=== PATIENT | male | born 1950 | race Caucasian/White ===

== ENCOUNTER 2019-02-02 09:04 | Day surgery (SDC) | payer MEDICARE, SELFPAY ==
[2019-02-02 10:00] VITALS: BP 144/94; PULSE 64; RESP 18; TEMP 36.4; O2SAT 98; BMI 27.3
[2019-02-02] MEDS: PROPARACAINE 0.5% OPHTH SOL 2 DROPS EYE-OP (10:05)
[2019-02-02] MEDS: CATARACT EYE COMPOUND (10 DROPS/SYRINGE) 3 DROPS EYE-OP (10:15)
--- NOTE | 2019-02-02 10:37 | PM.PREOP ---
Pre-operative Note Interval Note History & Physical reviewed/Exam performed by Physician: Yes Changes to H&P: No
[2019-02-02] MEDS: BALANCED SALT IRRIG SOLN NO.2 15 ML 5 ML IRR (11:03)
[2019-02-02] MEDS: LIDOCAINE 2% INJ SDV 2 ML INJ (11:04)
[2019-02-02] MEDS: CHONDROIDTIN/SOD HYALURONATE 1.05 ML SYRINGE INTRAOCULA (11:04)
[2019-02-02] MEDS: TETRACAINE 0.5% OPHTH DROPS 4 ML 2 DROPS EYE-OP (11:05)
[2019-02-02] MEDS: MOXIFLOXACIN INJ 5 MG/ML VIAL EYE-OP (11:05)
[2019-02-02] MEDS: PHENYLEPHRINE/LIDOCAINE VIAL (OR) 0.2 ML EYE-OP (11:05)
[2019-02-02] MEDS: BALANCED SALT IRRIG SOLN NO.2 500 ML, EPINEPHrine 1 MG IRR (11:06)
--- NOTE | 2019-02-02 11:23 | P.OP_ITS ---
Procedure & Clinicians Procedure: Cataract extraction with intraocular lens implant, left Same procedure as scheduled: Yes Indications: Visually significant age related nuclear sclerosis, left Surgeon: Jorge Bowen Click Yes if Unassisted: Yes Anesthesia Type: MAC +/- Operative Notes Procedure in detail: The patient was brought to the operating suite. The correct patient, surgical site and lens were confirmed. 0.5 % tetracaine drops were placed in the left eye. The patient was prepped and draped in the typical bronson rile manner. A lid speculum was placed in the eye. 2% lidocaine was placed on the eye. A paracentesis port was created with a side-port blade. 0.1 mL of 1% preservative free lidocaine with phenylephrine was injected into the anterior chamber. Viscoelastic was injected into the anterior chamber. A 2.6mm keratome was used to create a clear corneal temporal incision. Cystotome and Utrata forceps were used to create a continuous curvilinear capsulorrhexis. Balanced salt solution was used to hydrodissect the nucleus. Phacoemulsification was used to remove the lens. The capsular bag was inflated with viscoelastic. A Perales ZCBOO +24.0D lens was inserted into the capsule. Viscoelastic was removed and the wound hydrated. The wound was found to be leak free and the eye was assessed to be at normal physiologic pressure. 0.1mL Vigamox was injected into the anterior chamber. The lid speculum was removed and the patient left the operating room in excellent condition. Complications: none Post-operative Condition: stable Disposition: same day surgery
[2019-02-02 11:30] VITALS: BP 150/93; PULSE 62; RESP 20; TEMP 36.2; O2SAT 99
== END 2019-02-02 10:45 | disposition home or self-care (01) ==
LOC: OR 09:07
PROVIDERS: Admitting Provider Ophthalmology; Visit Provider Ophthalmology
PROC: (CPT 66984; principal; 2019-02-02 10:30)
DX: H25.12 Age-related nuclear cataract, left eye (principal); E11.9 Type 2 diabetes mellitus without complications
CPT/HCPCS: 66984; J0171; J2250; J3010

== ENCOUNTER 2019-02-16 09:15 | Day surgery (SDC) | payer MEDICARE, SELFPAY ==
[2019-02-16] MEDS: PROPARACAINE 0.5% OPHTH SOL 2 DROPS EYE-OP (09:33)
[2019-02-16 09:34] VITALS: BP 134/87; PULSE 69; RESP 16; TEMP 36.6; O2SAT 98; BMI 28.5
[2019-02-16] MEDS: CATARACT EYE COMPOUND (10 DROPS/SYRINGE) 3 DROPS EYE-OP (09:34)
--- NOTE | 2019-02-16 10:40 | PM.PREOP ---
Pre-operative Note Interval Note History & Physical reviewed/Exam performed by Physician: Yes Changes to H&P: No
[2019-02-16] MEDS: TETRACAINE 0.5% OPHTH DROPS 4 ML 2 DROPS EYE-OP (10:56)
[2019-02-16] MEDS: LIDOCAINE 2% INJ SDV 2 ML INJ (10:57)
[2019-02-16] MEDS: MOXIFLOXACIN INJ 5 MG/ML VIAL EYE-OP (10:57)
[2019-02-16] MEDS: PHENYLEPHRINE/LIDOCAINE VIAL (OR) 0.2 ML EYE-OP (10:57)
[2019-02-16] MEDS: CHONDROIDTIN/SOD HYALURONATE 1.05 ML SYRINGE INTRAOCULA (10:58)
[2019-02-16] MEDS: BALANCED SALT IRRIG SOLN NO.2 500 ML, EPINEPHrine 1 MG IRR (10:58)
[2019-02-16] MEDS: BALANCED SALT IRRIG SOLN NO.2 15 ML 5 ML IRR (10:59)
--- NOTE | 2019-02-16 11:18 | PM.OP.1 ---
Procedure & Clinicians Procedure: Cataract extraction with intraocular lens implant, right Same procedure as scheduled: Yes Indications: Age related, visually significant nuclear sclerosis, right Surgeon: Jorge Bowen Click Yes if Unassisted: Yes Anesthesia Type: MAC +/- Operative Notes Procedure in detail: The patient was brought to the operating suite. The correct patient, surgical site and lens were confirmed. 0.5 % tetracaine drops were placed in the right eye. The patient was prepped and draped in the typical sterile manner. A lid speculum was placed in the eye. 2% lidocaine was placed on the eye. A paracentesis port was created with a side-port blade. 0.1 mL of 1% preservative free lidocaine with phenylephrine was injected into the anterior chamber. Viscoelastic was injected into the anterior chamber. A 2.6mm keratome was used to create a clear corneal temporal incision. Cystotome and Utrata forceps were used to create a continuous curvilinear capsulorrhexis. Balanced salt solution was used to hydrodissect the nucleus. Phacoemulsification was used to remove the lens. The capsular bag was inflated with viscoelastic. A Perales ZCBOO +23.5D lens was inserted into the capsule. Viscoelastic was removed and the wound hydrated. The wound was found to be leak free and the eye was assessed to be at normal physiologic pressure. 0.1mL Vigamox was injected into the anterior chamber. The lid speculum was removed and the patient left the operating room in excellent condition. Complications: none Post-operative Condition: stable Disposition: same day surgery
[2019-02-16 11:33] VITALS: BP 138/88; PULSE 65; RESP 20; TEMP 36.3; O2SAT 98
== END 2019-02-16 11:39 | disposition home or self-care (01) ==
PROVIDERS: Visit Provider Ophthalmology
PROC: (CPT 66984; principal; 2019-02-16 10:30)
DX: H25.11 Age-related nuclear cataract, right eye (principal); E11.9 Type 2 diabetes mellitus without complications
CPT/HCPCS: 66984; J0171; J2250; J3010

== ENCOUNTER 2019-08-17 02:09 | Emergency (ER) | payer MEDICARE, SELFPAY ==
[2019-08-17 02:17] VITALS: BP 186/104; PULSE 59; RESP 18; TEMP 36.5; O2SAT 99; BMI 28.1
--- NOTE | 2019-08-17 02:25 | PC.NURSE ---
Pt daughter in [place] for third times since arrival requesting pain meds for pt. Pt and daughter updated again for 3rd time since arrival that RN is unable to get pain medication for pt without Dr order and Dr will be in with pt as soon as she is available as she is on another call with at Dr at present. Dr aware. Pt daughter asked by RN to remain in pt room and refrain from standing outside room per ED policy or given option to wait outside. Pt daughter agitated and ignored RN with no verbal response and stepped back in room stating it taking too long pt in ED less than 20 minutes at this time.
[2019-08-17 02:30] VITALS: BP 184/95; PULSE 60; RESP 16; BMI 28.1
--- NOTE | 2019-08-17 02:37 | DI.CT.S_ITS ---
PROCEDURE: CT KIDNEY URETER BLADDER (KUB) INDICATIONS: left flank pain TECHNIQUE: Noncontrast 5 mm thick sections acquired from the diaphragms to the symphysis. 5 mm thick coronal and sagittal reformats were then performed. For radiation dose reduction, the following was used: automated exposure control, adjustment of mA and/or kV according to patient size. COMPARISON: None. FINDINGS: Image quality: Excellent. Lung bases: Lung bases are clear. Heart size is normal. Urinary system: Both kidneys are normal in size. There are bilateral small nonobstructive kidney stones but also a 4 x 6 x 7 mm impacted calculus at approximately the junction of middle and upper thirds of the left ureter with associated moderate left hydronephrosis, perinephric edema and ureteral dilatation to the level of the calculus.. No right-sided hydronephrosis or perinephric fat stranding. Both ureters otherwise appear non-dilated throughout their expected courses. Bladder wall thickness is normal; no calcified bladder stones. Several presumed renal cortical cysts are noted, incompletely characterized by noncontrast CT scanning Other solid organs: Liver is normal in size. Gallbladder appears previously resected. Pancreas is normal in contours. Spleen is normal in size. No adrenal nodules. Peritoneum and bowel: Unenhanced bowel loops demonstrate normal wall thickness and caliber. No free fluid or air. Nodes and vessels: No retroperitoneal or mesenteric adenopathy by size criteria. Aorta and inferior vena cava are normal in caliber. Abdominal wall: No ventral hernias. Pelvis: No free pelvic fluid. No inguinal hernias or adenopathy. Bones: No suspicious bony lesions. No vertebral body compression fractures. IMPRESSION: Impacted 4 x 6 x 7 mm calculus within the proximal ureter on the left with associated moderate hydronephrosis and proximal hydroureter, and perinephric edema on the left. A stone of this size generally will not pass without urologic intervention. Urology consultation is recommended. This calculus has an estimated radiodensity at 835 Hounsfield units. Bilateral nonobstructive small renal calculi are seen within the collecting system of each kidney. Dictated by: Stalney Skaggs M.D. on 08/17/2019 at 8:15 Approved by: Stanley Skaggs M.D. on 08/17/2019 at 8:19
--- NOTE | 2019-08-17 02:38 | ED_ITS ---
HPI - Abdominal Pain General Chief Complaint: Abdominal Pain Stated Complaint: woke up with left side pain Time Seen by Provider: 08/17/19 02:21 History of Present Illness HPI narrative: 69-year-old gentleman with the very distant history of kidney stones, diverticulitis chronic back pain presents with acute onset left-sided abdominal/flank pain radiating into the groin and through to his back. He is still able to void but notes that it is darker than usual. The pain woke him from sleep at midnight and he describes it as severe. It is not influenced with physicians or movement. He states that it does feel like prior kidney stones. Related Data Home Medications Medication Instructions Recorded Confirmed ibuprofen 200 mg PO Q6H PRN 02/02/19 02/16/19 Previous Rx's Medication Instructions Recorded oxycodone-acetaminophen [Percocet] 1 tab PO Q6H PRN #14 tab 08/17/19 tamsulosin [Flomax] 0.4 mg PO DAILY #30 cap 08/17/19 Allergies Allergy/AdvReac Type Severity Reaction Status Date / Time No Known Drug Allergies Allergy Verified 02/16/19 09:32 Review of Systems Review of Systems Narrative: Pertinent positive and negative findings as per HPI Remainder of review of systems is otherwise unremarkable for Constitutional: Fevers, chills, weakness ENT: No sore throat, neck pain, ear pain CV: Chest pain, palpitations, dyspnea on exertion Respiratory: Cough, wheeze, dyspnea GI: Nausea, vomiting, diarrhea, change in bowel habits, black or bloody stools : Dysuria, hematuria, flank pain MS: Muscle weakness, numbness, joint swelling or warmth Skin: Rashes, nonhealing lesions Neuro: Syncope, dizziness, tingling Psych: Depression, anxiety, suicidal ideation Patient History Medical History Acid reflux (Acute) Barretts esophagus (Acute) Diverticulitis (Acute) Kidney stones (Acute) Social History household members: children Smoking Status: Former smoker Smoking Status: Former smoker alcohol intake frequency: 0-2 drinks per day Substance Use Type: does not use Exam Narrative Exam Narrative: General: Healthy appearing, in moderate distress, holding his left lower quadrant . Well-nourished well-developed HEENT: Moist mucous membranes, normal sclera with reactive pupils, Respiratory: Lungs are clear to auscultation, no wheezing no rales no rhonchi. Full and symmetrical air movement Cardiac: Regular rate and rhythm no murmurs no bruits Abdomen: Soft, no reproducible tenderness with palpation, good bowel tones, flank pain left side Skin: Warm and dry, no rashes Neurologic: Grossly neurologically intact with no obvious asymmetries or abnormalities Extremities: No trauma, well perfused Psych: Cooperative, appropriate insight and affect Initial Vital Signs Initial Vital Signs: Vital Signs Temperature 97.7 F 08/17/19 02:17 Pulse Rate 59 L 08/17/19 02:17 Respiratory Rate 18 08/17/19 02:17 Blood Pressure 186/104 H 08/17/19 02:17 Pulse Oximetry 99 08/17/19 02:17 Course Orders Ordered: ED Orders 08/17/19 02:20 Complete Blood Count AUTO DIFF Stat Comprehensive Metabolic Panel Stat 08/17/19 02:37 CT kidney ureter bladder (KUB) Stat Discontinued Medications Hydromorphone HCl (Dilaudid) 0.5 mg IV NOW ONE Stop: 08/17/19 02:37 Last Admin: 08/17/19 02:50 Dose: 0.5 mg Documented by: MMCFARL Hydromorphone HCl (Dilaudid) 1 mg IV NOW ONE Stop: 08/17/19 03:20 Last Admin: 08/17/19 03:24 Dose: 1 mg Documented by: MMCFARL Sodium Chloride (Normal Saline 0.9%) 1,000 mls @ 1,000 mls/hr IV BOLUS ONE Stop: 08/17/19 03:35 Last Infusion: 08/17/19 04:30 Dose: 1,000 mls/hr Documented by: Admin: 08/17/19 02:45 Dose: 1,000 mls/hr Documented by: MMCFARL Sodium Chloride (Normal Saline 0.9%) 1,000 mls @ 1,000 mls/hr IV BOLUS ONE Stop: 08/17/19 05:30 Ketorolac Tromethamine (Toradol) 15 mg IV NOW ONE Stop: 08/17/19 02:37 Last Admin: 08/17/19 02:45 Dose: 15 mg Documented by: MMCFARL Ondansetron HCl (Zofran) 4 mg IV NOW ONE Stop: 08/17/19 02:37 Last Admin: 08/17/19 02:44 Dose: 4 mg Documented by: NICK Oxycodone/Acetaminophen (Percocet 5/325) 2 tab PO NOW ONE Stop: 08/17/19 04:05 Last Admin: 08/17/19 04:10 Dose: 2 tab Documented by: MOIZL Oxycodone/Acetaminophen (Endocet 5/325 Prepack) 1 bottle MISC SEEINSTR ONE Stop: 08/17/19 04:37 Last Admin: 08/17/19 04:50 Dose: 1 bottle Documented by: NICK Tamsulosin HCl (Flomax) 0.4 mg PO NOW ONE Stop: 08/17/19 03:20 Last Admin: 08/17/19 03:24 Dose: 0.4 mg Documented by: NICK Vital Signs Vital signs: Vital Signs - 8 hr 08/17/19 02:17 08/17/19 02:30 08/17/19 04:45 Temperature 97.7 F Pulse Rate 59 L 60 64 Respiratory Rate 18 16 15 Blood Pressure 186/104 H 166/85 H Blood Pressure [Left Arm] 184/95 H Pulse Oximetry 99 99 MDM - Abdominal Pain Medical Records Attestation: I reviewed the patient's medical records. Lab Data Attestation: I reviewed the patient's lab results. Result diagrams: 08/17/19 02:20 08/17/19 02:20 Labs: Lab Results 08/17/19 08/17/19 Range/Units 02:20 02:20 WBC 12.6 H (4.5-11.0) X10^3/uL RBC 4.40 L (4.5-5.9) X10^6/uL Hgb 14.1 (13.5-17.5) g/dL Hct 41.0 (41-53) % MCV 93.2 (80-100) fL MCH 31.9 (26-34) PG MCHC 34.3 (30-36) % RDW 13.3 (11.6-14.8) % Plt Count 259 (150-400) X10^3/uL Neut % (Auto) 81.3 H (50-75) % Lymph % (Auto) 13.9 L (25-40) % Louisa % (Auto) 3.7 (3-14) % Eos % (Auto) 0.6 L (2-4) % Baso % (Auto) 0.5 (0-2) % Neut # (Auto) 53814 H (9703-9947) /uL Lymph # (Auto) 1800 (4895-2668) /uL Louisa # (Auto) 500 (0-900) /uL Eos # (Auto) 100 (0-450) /uL Baso # (Auto) 100 (0-100) /uL Sodium 140 (137-145) mmol/L Potassium 4.2 (3.4-5.1) mmol/L Chloride 106 (98-107) mmol/L Carbon Dioxide 28 (22-32) mmol/L BUN 20 (9-20) mg/dL Creatinine 1.16 (0.66-1.25) mg/dL Estimated GFR > 60.0 (>60) mL/min BUN/Creatinine Ratio 17.2 (6-22) Glucose 162 H (80-110) mg/dL Calcium 9.3 (8.4-10.2) mg/dL Total Bilirubin 0.3 (0.2-1.3) mg/dL AST 30 (17-59) IU/L ALT 30 (<50) IU/L Alkaline Phosphatase 113 (38-126) U/L Total Protein 7.8 (6.3-8.2) g/dL Albumin 4.3 (3.5-5.0) g/dL Globulin 3.5 (1.7-4.1) g/dL Albumin/Globulin Ratio 1.2 (1.0-2.8) Imaging Data CT scan - abdomen/pelvis: Radiologist's Impression: Multiple bilateral renal stones Large proximal left ureteral stone with moderate hydronephrosis Right renal cyst Prior cholecystectomy, prior right inguinal herniorrhaphy Abisai Herbert MD [facility] Narrative Medical decision making narrative: 69-year-old gentleman with acute onset of left abdominal pain with CT scan revealing large mid ureteral stone with hydronephrosis. Pain has been difficult to control. There is no evidence of infection or renal failure at this time. In the past patient has had large kidney stone and did need ureteral stenting. Anticipate this may be the case again. Will ask him to contact Dr. Will, urology, a in the next 1-2 days to discuss definitive care. Encouraged him to return to the emergency department should he have worsening pain, uncontrolled vomiting or developed any type of fever or chills. Discharge Plan Departure Patient Disposition: Home Clinical Impression: Ureterolithiasis Discharge Date/Time: 08/17/19 04:45 Instructions: DI for Kidney Stones Activity Restrictions/Additional Instructions: Thank you for coming in tonight You have an impressive kidney stone on the left side that about half-way down the ureter (the tube from the kidney to the bladder). There are no signs of infection. Using 400 mg of ibuprofen (2 [id number] pills) and 1 Tylenol every 6 hours can be very helpful in controlling pain. For severe pain using 400 mg of ibuprofen and 1-2 Percocet will be helpful. If you are using Percocet(a narcotic) please make sure you are also using stool softeners or extra dried fruit and water to make sure that you are avoiding constipation I have also given you a prescription for Flomax, this is a medication that may help the stone pass further down the ureter. Please take 1 a day until the stone passes This is a large and a stone that you likely are going to need some type of intervention to help it passed completely. Please contact Dr. Will, urology, later today to set up a follow-up appointment. If you are having pain that cannot be controlled with oral pain medication, severe vomiting or develop a fever you need to return to the emergency room for additional IV treatment. I wish you the best Prescriptions: New oxycodone-acetaminophen [Percocet] 5-325 mg tablet 1 tab PO Q6H PRN (Reason: pain) Qty: 14 RF: 0 tamsulosin [Flomax] 0.4 mg capsule 0.4 mg PO DAILY Qty: 30 RF: 0 No Action ibuprofen 200 mg Capsule 200 mg PO Q6H PRN (Reason: Pain (Scale Score 1-3)) RF: 0 Referrals: Bob Crespo MD [Physician] -
[2019-08-17] MEDS: ONDANSETRON 4 MG/2 ML INJ IV (02:44)
[2019-08-17] MEDS: SODIUM CHLORIDE 0.9% 1,000 ML 1000 ML IV (02:45)
[2019-08-17] MEDS: KETOROLAC 60 MG/2 ML VIAL 15 MG IV (02:45)
[2019-08-17 02:47] LABS: Add Manual Diff / Slide Review NO; Basophils Absolute Auto 100 /uL (0-100); Basophils Percent Auto 0.5 % (0-2); Eosinophils Absolute Auto 100 /uL (0-450); Eosinophils Percent Auto 0.6 % (2-4); Hemoglobin 14.1 g/dL (13.5-17.5); Lymphocytes Absolute Auto 1800 /uL (1100-4500); Lymphocytes Percent Auto 13.9 % (25-40); Mean Corpuscular HGB Conc 34.3 % (30-36); Mean Corpuscular Hemoglobin 31.9 PG (26-34); Mean Corpuscular Volume 93.2 fL (80-100); Monocytes Absolute Auto 500 /uL (0-900); Monocytes Percent Auto 3.7 % (3-14); Neutrophils Absolute Auto 10200 /uL (1500-7000); Neutrophils Percent Auto 81.3 % (50-75); Platelet Count 259 X10^3/uL (150-400); Red Cell Distribution Width 13.3 % (11.6-14.8); White Blood Cell Count 12.6 X10^3/uL (4.5-11.0)
[2019-08-17 02:50] LABS: Alanine Aminotransferase 30 IU/L (<50); Albumin 4.3 g/dL (3.5-5.0); Albumin Globulin Ratio 1.2 (1.0-2.8); Alkaline Phosphatase 113 U/L (38-126); Aspartate Aminotransferase 30 IU/L (17-59); BUN Creatinine Ratio 17.2 (6-22); Bilirubin Total 0.3 mg/dL (0.2-1.3); Blood Urea Nitrogen 20 mg/dL (9-20); Calcium 9.3 mg/dL (8.4-10.2); Carbon Dioxide 28 mmol/L (22-32); Chloride 106 mmol/L (98-107); Estimated Glomerular Filt Rate > 60.0 mL/min (>60); Globulin 3.5 g/dL (1.7-4.1); Glucose 162 mg/dL (80-110); HEMOLYSIS < 15 (0-50); Potassium 4.2 mmol/L (3.4-5.1); Sodium 140 mmol/L (137-145); Total Protein 7.8 g/dL (6.3-8.2)
[2019-08-17] MEDS: HYDROMORPHONE 0.5 MG INJ IV (02:50)
[2019-08-17] MEDS: HYDROMORPHONE 1 MG INJ IV (03:24)
[2019-08-17] MEDS: TAMSULOSIN 0.4 MG CAPSULE PO (03:24)
[2019-08-17] MEDS: OXYCODONE/ACETAMINOPHEN 5/325 TABLET 2 TAB PO (04:10)
[2019-08-17 04:45] VITALS: BP 166/85; PULSE 64; RESP 15; O2SAT 99
[2019-08-17] MEDS: OXYCODONE/APAP 5/325 PREPACK 1 BOTTLE MISC (04:50)
== END 2019-08-17 04:45 | disposition home or self-care (01) ==
PROVIDERS: Emergency Provider Emergency Medicine
DX: N13.2 Hydronephrosis with renal and ureteral calculous obstruction (principal)
CPT/HCPCS: 36415; 74176; 80053; 85025; 96361; 96374; 96375; 96376; 99284; J1170; J1885; J2405

== ENCOUNTER 2019-08-18 16:46 | Observation (INO) | payer MEDICARE, SELFPAY ==
[2019-08-18] VITALS (9 sets, daily range): BP systolic 150–212; BP diastolic 82–103; PULSE 60–95; RESP 12–20; TEMP 36.4–37.1; O2SAT 94–98; BMI 27.3
--- NOTE | 2019-08-18 | DI.RAD.S_ITS ---
PROCEDURE: XR ABDOMEN 1V INDICATIONS: LEFT STENT PLACEMENT TECHNIQUE: 2 view of the abdomen acquired. COMPARISON: [facility], CR, XR KUB, 08/18/2019, 18:29. [facility], CT, CT KIDNEY URETER BLADDER (KUB), 08/17/2019, 2:35. FINDINGS: Fluoroscopic guidance for left ureteral stent placement. IMPRESSION: Fluoroscopic guidance for left ureteral stent placement. Dictated by: Colby Brock M.D. on 08/18/2019 at 21:30 Approved by: Colby Brock M.D. on 08/18/2019 at 21:31
[2019-08-18] MEDS: HYDROMORPHONE 0.5 MG INJ IV (17:52)
[2019-08-18] MEDS: LACTATED RINGERS 1,000 ML 42 ML IV ×2 (17:52→19:18)
[2019-08-18 17:53] LABS: Add Manual Diff / Slide Review NO; Basophils Absolute Auto 0 /uL (0-100); Basophils Percent Auto 0.4 % (0-2); Eosinophils Absolute Auto 100 /uL (0-450); Eosinophils Percent Auto 0.4 % (2-4); Hematocrit 40.6 % (41-53); Hemoglobin 13.9 g/dL (13.5-17.5); Lymphocytes Absolute Auto 1600 /uL (1100-4500); Lymphocytes Percent Auto 11.6 % (25-40); Mean Corpuscular HGB Conc 34.3 % (30-36); Mean Corpuscular Hemoglobin 31.7 PG (26-34); Mean Corpuscular Volume 92.5 fL (80-100); Monocytes Absolute Auto 600 /uL (0-900); Monocytes Percent Auto 4.6 % (3-14); Neutrophils Absolute Auto 11300 /uL (1500-7000); Platelet Count 249 X10^3/uL (150-400); Red Blood Cell Count 4.39 X10^6/uL (4.5-5.9); Red Cell Distribution Width 13.3 % (11.6-14.8); White Blood Cell Count 13.6 X10^3/uL (4.5-11.0)
[2019-08-18 17:58] LABS: Alanine Aminotransferase 31 IU/L (<50); Albumin 4.5 g/dL (3.5-5.0); Albumin Globulin Ratio 1.3 (1.0-2.8); Alkaline Phosphatase 122 U/L (38-126); Aspartate Aminotransferase 34 IU/L (17-59); BUN Creatinine Ratio 19.2 (6-22); Bilirubin Total 0.5 mg/dL (0.2-1.3); Blood Urea Nitrogen 20 mg/dL (9-20); Calcium 9.2 mg/dL (8.4-10.2); Carbon Dioxide 24 mmol/L (22-32); Chloride 105 mmol/L (98-107); Estimated Glomerular Filt Rate > 60.0 mL/min (>60); Globulin 3.6 g/dL (1.7-4.1); Glucose 132 mg/dL (80-110); HEMOLYSIS < 15 (0-50); Potassium 4.4 mmol/L (3.4-5.1); Sodium 138 mmol/L (137-145); Total Protein 8.1 g/dL (6.3-8.2)
--- NOTE | 2019-08-18 18:23 | PC.NURSE ---
pt complaining of increased pain. DNP [place] aware
[2019-08-18] MEDS: HYDROMORPHONE 1 MG INJ IV (18:31)
--- NOTE | 2019-08-18 18:39 | DI.RAD.S_ITS ---
PROCEDURE: XR KUB INDICATIONS: pre op/kidney stone TECHNIQUE: One view of the abdomen acquired. COMPARISON: [facility], CT, CT KIDNEY URETER BLADDER (KUB), 08/17/2019, 2:35. FINDINGS: Surgical changes and devices: Cholecystectomy clips. Prior pelvic mesh. Left pelvis clips. Bowel: Relative paucity of small bowel gas limits evaluation for small bowel obstruction. However, no dilated loops of bowel are identified. There is prominent stool in the right colon visualized. Soft tissues: Injecting calculus at the level of L3 transverse process seen on CT KUB earlier today is not definitely visualized. Small calcifications projecting over the left midabdomen. Visualized solid organ contours appear normal in size. Probable medication tablets in the left upper quadrant. Increased density in the stomach. Bones: No suspicious bony lesions. IMPRESSION: 1. The obstructing calculus in the left ureter seen on CT KUB earlier today is not definitely visualized. 2. Prominent stool in right colon. Dictated by: Colby Brock M.D. on 08/18/2019 at 18:57 Approved by: Colby Brock M.D. on 08/18/2019 at 19:02
[2019-08-18 18:44] LABS: COVID19 -Nasal RAPID Negative (Negative)
--- NOTE | 2019-08-18 18:56 | ED.ABDPAIN ---
HPI - Abdominal Pain <ERYN Etienne - Last Filed: 08/18/19 19:00> General Chief Complaint: Abdominal Pain Stated Complaint: LOWER PAIN KIDNEY STONES Time Seen by Provider: 08/18/19 17:00 Source: patient Mode of arrival: Wheelchair Limitations: no limitations History of Present Illness HPI narrative: The patient is a 69-year-old male who presents with his daughter presenting for chief complaint of needing to go to the operating room. He states he was told to come here, have rapid coronavirus testing done and that his urologist, Dr. Crespo would later be taking him to the operating room. He complains of nausea, no vomiting. He denies any fevers. He states that he was seen in the emergency department just yesterday and followed up with urology. He does not have a primary care provider. Related Data Home Medications Medication Instructions Recorded Confirmed ibuprofen 200 mg PO Q6H PRN 02/02/19 02/16/19 Previous Rx's Medication Instructions Recorded oxycodone-acetaminophen [Percocet] 1 tab PO Q6H PRN #14 tab 08/17/19 tamsulosin [Flomax] 0.4 mg PO DAILY #30 cap 08/17/19 Allergies Allergy/AdvReac Type Severity Reaction Status Date / Time No Known Drug Allergies Allergy Verified 02/16/19 09:32 Review of Systems <ERYN Etienne - Last Filed: 08/18/19 19:00> Review of Systems Narrative: GENERAL: Denies chills, fatigue, malaise, fever, sweats. HEENT: Denies sinus pain, ear pain, sore throat, difficulty swallowing, dizziness. RESPIRATORY: Denies dyspnea, cough, wheezing, hemoptysis, sputum. CARDIOVASCULAR: Denies chest pain, palpitations, orthopnea, edema, GASTROINTESTINAL: See HPI : See HPI MUSCULOSKELETAL: denies weakness, joint pain, or bony pain SKIN: Denies rash, skin lesions, or other NEUROLOGIC: Denies weakness, headache, numbness, change in speech, confusion, seizures, incoordination. PSYCHIATRIC: No concerning psychosocial issues. 12 point review of systems is negative except for those stated above Patient History <ERYN Etienne - Last Filed: 08/18/19 19:00> Medical History Acid reflux (Acute) Barretts esophagus (Acute) Diverticulitis (Acute) Kidney stones (Acute) Social History household members: children Smoking Status: Former smoker Smoking Status: Former smoker alcohol intake frequency: 0-2 drinks per day Substance Use Type: does not use Exam <ERYN Etienne - Last Filed: 08/18/19 19:00> Narrative Exam Narrative: GENERAL: This is a well-nourished, well-developed patient, appears uncomfortable HEAD: Atraumatic. Normocephalic. No temporal or scalp tenderness. EYES: Pupils equal round and reactive. Extraocular motions intact. No scleral icterus. No injection or drainage. ENT: Nose without bleeding, purulent drainage or septal hematoma. Throat without erythema, tonsillar hypertrophy or exudate. Uvula midline. Airway patent. NECK: Trachea midline. No JVD or lymphadenopathy. Supple, nontender, no meningeal signs. CARDIOVASCULAR: Regular rate and rhythm RESPIRATORY: Clear to auscultation. Breath sounds equal bilaterally. No wheezes, rales, or rhonchi. No cough. No increased respiratory effort. No accessory GASTROINTESTINAL: Abdomen soft, left lower quadrant pain to palpation, nondistended. No hepato-splenomegaly, or palpable masses. No guarding. Active bowel sounds all 4 quadrants EXTREMITIES: No clubbing, cyanosis, or edema. No joint tenderness, effusion, or edema noted. BACK: Nontender without deformity or crepitance. No flank tenderness. NEURO: AOx3. SKIN: No rash or erythema on visible skin Initial Vital Signs Initial Vital Signs: Vital Signs Temperature 97.6 F 08/18/19 16:55 Pulse Rate 65 08/18/19 16:55 Respiratory Rate 18 08/18/19 16:55 Blood Pressure 190/96 H 08/18/19 16:55 Pulse Oximetry 98 08/18/19 16:55 <Yordy Branch DO - Last Filed: 08/18/19 19:10> Initial Vital Signs Initial Vital Signs: Vital Signs Temperature 97.6 F 08/18/19 16:55 Pulse Rate 65 08/18/19 16:55 Respiratory Rate 18 08/18/19 16:55 Blood Pressure 190/96 H 08/18/19 16:55 Pulse Oximetry 98 08/18/19 16:55 Course <EUGENIE Etienne-BC - Last Filed: 08/18/19 19:00> Orders Ordered: ED Orders 08/18/19 17:40 Complete Blood Count AUTO DIFF Stat Comprehensive Metabolic Panel Stat Lactated Ringer's (Lactated Ringers) 1,000 mls @ 42 mls/hr IV CONT [facility] Last Admin: 08/18/19 17:52 Dose: 42 mls/hr Documented by: ELIO Cefazolin Sodium/Dextrose (Ancef) 2 gm in 100 mls @ 200 mls/hr IV NOW ONE Stop: 08/18/19 19:35 Discontinued Medications Gabapentin (Neurontin) 300 mg PO NOW ONE Stop: 08/18/19 17:01 Hydromorphone HCl (Dilaudid) 0.5 mg IV NOW ONE Stop: 08/18/19 17:45 Last Admin: 08/18/19 17:52 Dose: 0.5 mg Documented by: ELIO Hydromorphone HCl (Dilaudid) 1 mg IV NOW ONE Stop: 08/18/19 18:23 Last Admin: 08/18/19 18:31 Dose: 1 mg Documented by: ELIO Vital Signs Vital signs: Vital Signs - 8 hr 08/18/19 16:55 08/18/19 17:43 08/18/19 18:04 Temperature 97.6 F Pulse Rate 65 60 71 Respiratory Rate 18 16 20 Blood Pressure 190/96 H Blood Pressure [Left Arm] 212/99 H 201/103 H Pulse Oximetry 98 97 96 <Yordy Branch DO - Last Filed: 08/18/19 19:10> Orders Ordered: ED Orders 08/18/19 17:40 Complete Blood Count AUTO DIFF Stat Comprehensive Metabolic Panel Stat Lactated Ringer's (Lactated Ringers) 1,000 mls @ 42 mls/hr IV CONT [facility] Last Admin: 08/18/19 17:52 Dose: 42 mls/hr Documented by: ELIO Cefazolin Sodium/Dextrose (Ancef) 2 gm in 100 mls @ 200 mls/hr IV NOW ONE Stop: 08/18/19 19:35 Discontinued Medications Gabapentin (Neurontin) 300 mg PO NOW ONE Stop: 06/05/20 17:01 Hydromorphone HCl (Dilaudid) 0.5 mg IV NOW ONE Stop: 08/18/19 17:45 Last Admin: 08/18/19 17:52 Dose: 0.5 mg Documented by: ELIO Hydromorphone HCl (Dilaudid) 1 mg IV NOW ONE Stop: 08/18/19 18:23 Last Admin: 08/18/19 18:31 Dose: 1 mg Documented by: ELIO Vital Signs Vital signs: Vital Signs - 8 hr 08/18/19 16:55 08/18/19 17:43 08/18/19 18:04 Temperature 97.6 F Pulse Rate 65 60 71 Respiratory Rate 18 16 20 Blood Pressure 190/96 H Blood Pressure [Left Arm] 212/99 H 201/103 H Pulse Oximetry 98 97 96 MDM - Abdominal Pain <EUGENIE Etienne- - Last Filed: 08/18/19 19:00> Lab Data Result diagrams: 08/18/19 17:40 08/18/19 17:40 Labs: Lab Results 08/18/19 08/18/19 08/18/19 Range/Units 17:40 17:40 17:40 WBC 13.6 H (4.5-11.0) X10^3/uL RBC 4.39 L (4.5-5.9) X10^6/uL Hgb 13.9 (13.5-17.5) g/dL Hct 40.6 L (41-53) % MCV 92.5 (80-100) fL MCH 31.7 (26-34) PG MCHC 34.3 (30-36) % RDW 13.3 (11.6-14.8) % Plt Count 249 (150-400) X10^3/uL Neut % (Auto) 83.0 H (50-75) % Lymph % (Auto) 11.6 L (25-40) % [place] % (Auto) 4.6 (3-14) % Eos % (Auto) 0.4 L (2-4) % Baso % (Auto) 0.4 (0-2) % Neut # (Auto) 21265 H (5134-8516) /uL Lymph # (Auto) 1600 (6611-3567) /uL [place] # (Auto) 600 (0-900) /uL Eos # (Auto) 100 (0-450) /uL Baso # (Auto) 0 (0-100) /uL Sodium 138 (137-145) mmol/L Potassium 4.4 (3.4-5.1) mmol/L Chloride 105 (98-107) mmol/L Carbon Dioxide 24 (22-32) mmol/L BUN 20 (9-20) mg/dL Creatinine 1.04 (0.66-1.25) mg/dL Estimated GFR > 60.0 (>60) mL/min BUN/Creatinine Ratio 19.2 (6-22) Glucose 132 H (80-110) mg/dL Calcium 9.2 (8.4-10.2) mg/dL Total Bilirubin 0.5 (0.2-1.3) mg/dL AST 34 (17-59) IU/L ALT 31 (<50) IU/L Alkaline Phosphatase 122 (38-126) U/L Total Protein 8.1 (6.3-8.2) g/dL Albumin 4.5 (3.5-5.0) g/dL Globulin 3.6 (1.7-4.1) g/dL Albumin/Globulin Ratio 1.3 (1.0-2.8) COVID-19 PCR Negative (Negative) MDM Narrative Medical decision making narrative: The patient is a 61-year-old male with history of left-sided ureteral stone who presents with a chief complaint of needing to have [place] swab done for surgery. He states that his urologist, Dr. Crespo is following him in a to place a stent today. He states his pain is severe, complains of nausea, no vomiting. States his last oral intake was last night. I spoke with the patient's urologist, who states that the patient was supposed to check in for pre- op rather than check into the emergency department. I discussed with Dr. Crespo that we did basic labs, patient has an IV and has received Dilaudid. Patient was transferred to OR crew. I spoke with Margarita from registration who states that she will e-mail billing as the patient is concerned about pain for emergency department visit. <Yordy Branch, - Last Filed: 08/18/19 19:10> Lab Data Labs: Lab Results 08/18/19 08/18/19 08/18/19 Range/Units 17:40 17:40 17:40 WBC 13.6 H (4.5-11.0) X10^3/uL RBC 4.39 L (4.5-5.9) X10^6/uL Hgb 13.9 (13.5-17.5) g/dL Hct 40.6 L (41-53) % MCV 92.5 (80-100) fL MCH 31.7 (26-34) PG MCHC 34.3 (30-36) % RDW 13.3 (11.6-14.8) % Plt Count 249 (150-400) X10^3/uL Neut % (Auto) 83.0 H (50-75) % Lymph % (Auto) 11.6 L (25-40) % [place] % (Auto) 4.6 (3-14) % Eos % (Auto) 0.4 L (2-4) % Baso % (Auto) 0.4 (0-2) % Neut # (Auto) 03330 H (4071-3515) /uL Lymph # (Auto) 1600 (1020-9921) /uL [place] # (Auto) 600 (0-900) /uL Eos # (Auto) 100 (0-450) /uL Baso # (Auto) 0 (0-100) /uL Sodium 138 (137-145) mmol/L Potassium 4.4 (3.4-5.1) mmol/L Chloride 105 (98-107) mmol/L Carbon Dioxide 24 (22-32) mmol/L BUN 20 (9-20) mg/dL Creatinine 1.04 (0.66-1.25) mg/dL Estimated GFR > 60.0 (>60) mL/min BUN/Creatinine Ratio 19.2 (6-22) Glucose 132 H (80-110) mg/dL Calcium 9.2 (8.4-10.2) mg/dL Total Bilirubin 0.5 (0.2-1.3) mg/dL AST 34 (17-59) IU/L ALT 31 (<50) IU/L Alkaline Phosphatase 122 (38-126) U/L Total Protein 8.1 (6.3-8.2) g/dL Albumin 4.5 (3.5-5.0) g/dL Globulin 3.6 (1.7-4.1) g/dL Albumin/Globulin Ratio 1.3 (1.0-2.8) COVID-19 PCR Negative (Negative) Discharge Plan Departure Patient Disposition: Admitted as Observation Clinical Impression: Ureterolithiasis Discharge Date/Time: 08/18/19 18:30 Admit Date/Time: 08/18/19 18:36 Admit Provider: Bob Crespo <Yordy Branch, DO - Last Filed: 08/18/19 19:10> Cosign ED Attending Cosignature Attestation: Dr Branch Co-Sign Statement: I was available for consultation during this patient's emergency department visit. This chart is signed by myself for administrative purposes only. I did not have direct contact with this patient during this visit. They were seen independently by the APC.
[2019-08-18] MEDS: GABAPENTIN 300 MG CAPSULE PO (19:22)
--- NOTE | 2019-08-18 19:27 | PM.PREOP ---
Pre-operative Note Interval Note History & Physical reviewed/Exam performed by Physician: Yes Changes to H&P: No H&P completed within 30 days and has changed as indicated here:: There are no changes to the history and physical examination scanned in on file.
[2019-08-18] MEDS: CEFAZOLIN 2 GM/100 ML FROZ.PIGGY IV (19:52)
--- NOTE | 2019-08-18 20:12 | SUR.OPER ---
Lithotomy on padded OR bed, head on pillow, arms secured on padded arm boards at <90 degrees abduction. Legs secured in padded yellow fins stirrups.
--- NOTE | 2019-08-18 20:20 | P.OP_ITS ---
Operative Date/Time/Diagnoses Date of procedure: 08/18/19 Time of procedure: 20:20 Pre-op diagnosis: Obstructing 6 x 8 mm left proximal ureteral calculus. Intractable left renal colic. Post-op diagnosis: same Procedure & Clinicians Procedure: 1.Cystoscopy and placement left ureteral stent ( 7 [place] by 22-32 cm multi-length). 2. Cystoscopy removal bladder calculus. Same procedure as scheduled: No (Small small stone seen in bladder removed and submitted for analysis.) Indications: 1. Obstructing 6 x 8 mm left proximal ureteral calculus. 2. Intractable left renal colic. Surgeon: Bob Crespo Click Yes if Unassisted: Yes Anesthesia Type: General Operative Notes Findings: 1. Urethra-normal. 2. External sphincter-coapted. 3. Prostate-3.5 cm length with mild lateral lobe hyperplasia. 4. Bladder-normal appearing orifices bilaterally. Small calculus seen lying dependently posterior to the trigone. Trace to 1+ trabeculation. Closure Type: not applicable Specimen(s): other (Stone from bladder.) Applied: other (# 7 [place] by 22-32 cm multi-length ureteral stent) Estimated Blood Loss (mL): 0 Blood products transfused: none Tourniquet time (min): 0 Procedure in detail: The patient was positioned in supine and administered general anesthesia. He was repositioned in semi lithotomy the lower abdomen genitalia and groin were prepped and draped in sterile fashion. The 22 Mexican panendoscope was then passed to the lower urinary tract with the findings as described above. Next a 0.35 guidewire was advanced into the left ureteral orifice and proximally under direct and fluoroscopic guidance. A 7 Mexican by 22-32 cm multi-length stent was then selected. It was advanced over the guidewire again under direct and fluoroscopic guidance. OF NOTE: A RADIOPAQUE CALCULUS WAS NOT VISUALIZED ON PREOPERATIVE KUB OR INTRAOPERATIVE FLUOROSCOPY, INDICATING LIKELY URIC ACID COMPOSITION. A RETRIEVAL LINE WAS NOT LEFT ATTACHED. The visualized calculus line with dependently in the floor of the bladder were was then evacuated through the scope sheath, collected, and submitted for crystallographic analysis. The panendoscope was then removed. The patient was repositioned in supine, was awakened, and transferred to [facility] in stable condition. Complications: none Post-operative Condition: stable Disposition: PACU Plan for aftercare: Discharge home
[2019-08-31 20:33] LABS: Size <1
[2019-08-31 20:36] LABS: Ca oxalate dihydrate 30; Ca oxalate monohydr 70
== END 2019-08-18 21:00 | disposition home or self-care (01) ==
LOC: ED 17:00 → AC 18:37
PROVIDERS: Anesthesiology; Admitting Provider Specialist; Emergency Provider Nurse Practitioner Family; Visit Provider Specialist
PROC: (CPT 52310; principal; 2019-08-18 19:30)
DX: N21.0 Calculus in bladder (principal); R10.32 Left lower quadrant pain; N40.0 Benign prostatic hyperplasia without lower urinary tract symptoms; Z11.59 Encounter for screening for other viral diseases; I10 Essential (primary) hypertension; G47.33 Obstructive sleep apnea (adult) (pediatric); K21.9 Gastro-esophageal reflux disease without esophagitis; K22.70 Barrett's esophagus without dysplasia
CPT/HCPCS: 52310; 36415; 74018; 76000; 80053; 82365; 85025; 87635; 96361; 96374; 96376; 99284; G0378; J0690; J1170; J2405; J2704

== ENCOUNTER → 2019-08-29 10:51 | Outpatient (CLI) | payer MEDICARE, SELFPAY ==
[2019-08-30 09:40] LABS: COVID19 Sendout Not Detected (Not Detect)
== END ==
PROVIDERS: Visit Provider Registered Nurse
DX: Z01.812 Encounter for preprocedural laboratory examination (principal)
CPT/HCPCS: 87635

== ENCOUNTER 2019-09-01 11:32 | Day surgery (SDC) | payer MEDICARE, SELFPAY ==
[2019-09-01] VITALS (12 sets, daily range): BP systolic 126–159; BP diastolic 67–98; PULSE 58–70; RESP 9–16; TEMP 36.1–36.6; O2SAT 93–99; BMI 28.1
--- NOTE | 2019-09-01 | DI.RAD.S_ITS ---
PROCEDURE: XR ABDOMEN 1V INDICATIONS: STENT LEFT KIDNEY TECHNIQUE: One view of the abdomen acquired. COMPARISON: [facility], CR, XR ABDOMEN 1V, 08/18/2019, 20:13. FINDINGS: Surgical changes and devices: Single frontal view shows the upper margin of a ureteral catheter, centered on the left kidney area. No calculus is found, no contrast injection through the catheter is seen. IMPRESSION: Limited single view acquisition showing the upper margin of a ureteral catheter on the left. Dictated by: Stanley Skaggs M.D. on 09/01/2019 at 15:06 Approved by: Stanley Skaggs M.D. on 09/01/2019 at 15:07
[2019-09-01] MEDS: LACTATED RINGERS 1,000 ML 42 ML IV (12:05)
--- NOTE | 2019-09-01 13:43 | SUR.OPER ---
Lithotomy on padded OR bed, head on pillow, arms secured on padded arm boards at <90 degrees abduction. Legs secured in padded yellow fins stirrups.
--- NOTE | 2019-09-01 13:43 | PM.PREOP ---
Pre-operative Note Interval Note History & Physical reviewed/Exam performed by Physician: Yes Changes to H&P: No H&P completed within 30 days and has changed as indicated here:: There are no changes to the history and physical examination scanned on file.
[2019-09-01] MEDS: CEFAZOLIN 2 GM/100 ML FROZ.PIGGY IV (14:03)
[2019-09-01] MEDS: IOPAMIDOL 15 ML VIAL INJ (14:42)
--- NOTE | 2019-09-01 15:17 | SUR.OPER ---
Left ureteral stent has strings attached for retrieval.
--- NOTE | 2019-09-01 15:18 | PM.OP.1 ---
Operative Date/Time/Diagnoses Date of procedure: 09/01/19 Time of procedure: 15:18 Pre-op diagnosis: 1. History of obstructing left proximal left ureteral calculus. 2. Left nephrolithiasis. 3. Retained left ureteral stent. Post-op diagnosis: same Procedure & Clinicians Procedure: 1. Cystoscopy and left ureteroscopic intrarenal laser lithotripsy. 2. Cystoscopy and left retrograde pyelogram. 3. Cystoscopy and left ureteral stent exchange (6 Marshallese by 22-32 cm multi-length). Same procedure as scheduled: Yes Indications: 1. History of obstructing left proximal ureteral calculus. 2. Left nephrolithiasis. 3. Retained left ureteral stent. Surgeon: Bob Crespo Anesthesia Type: General Operative Notes Findings: The index calculus had been relocated into the left intrarenal collecting system upon recent left ureteral stent placement. There were at least 3 additional internal renal calculi the were identified and treated with laser. None of these calculi or the index calculus could be visualized with intraoperative fluoroscopy. Closure Type: not applicable Specimen(s): none sent Applied: other (Six [place]ese by 22-32 cm multi-length stent.) Estimated Blood Loss (mL): 0 Blood products transfused: none Tourniquet time (min): 0 Procedure in detail: The patient was positioned in supine and administered general anesthesia. He was then repositioned in semi lithotomy and the lower abdomen genitalia and groin were then prepped and draped in sterile fashion. The 22 [place]ese panendoscope was then passed in the lower urinary tract with findings as described above. A foreign body grasper was then utilized to withdraw the left ureteral stent distally so the distal tip was easily accessed at the urethral meatus. A 0.35 glidewire was then advanced into the lumen of the indwelling stent and advanced proximally under direct and fluoroscopic guidance. The retained stent was then backloaded off the Glidewire and discarded. The semi rigid ureteral scope was then prepared and was advanced into the lower urinary tract and then into the left collecting system under direct and fluoroscopic guidance. No stone was seen within the confines of the ureter proper. A 2nd 0.35 wire, in this instance a sensor tip guidewire, was advanced through the working channel of the semi rigid ureteral scope and advanced into the left collecting system under direct and fluoroscopic guidance. The flexible ureteral scope was then prepared. It was then advanced over the sensor tip wire under direct and fluoroscopic guidance. A retrograde pyelogram of the left collecting system was then performed and repeated on 1 other occasion during the procedure. The index calculus was encountered and found to be freely mobile within the central collecting system. Careful calyx to calyx examination revealed at least 3 other individual calculi. And 2 instances they were adherent to the urothelium 1 other instance there was a stone residing deeply within a left interpolar calyx. The patient and all operating room personnel were fitted with laser safety eyewear. A 200 micron laser fiber was selected, and lithotripsy was commenced painstakingly. Repeat left retrograde pyelogram was performed as necessary for repeat localization and orientation within the collecting system. The flexible ureteral scope was then removed and the panendoscope was front loaded onto the 0.35 sensor tip guidewire. The Glidewire was removed. Next, a 6 [place] by 22-32 cm multi-length stent was selected. This was then advanced over the guidewire under direct and fluoroscopic guidance. A RETRIEVAL LINE WAS LEFT ATTACHED. All instrumentation was removed a final time, and the patient was repositioned in supine. Patient was then awakened, transferred to [facility], and transported to recovery in stable condition. Complications: none Post-operative Condition: stable Disposition: PACU Plan for aftercare: Discharge home
[2019-09-01] MEDS: hydrOXYzine 50 MG/ML INJ 25 MG IM (15:42)
[2019-09-01] MEDS: HYDROMORPHONE 2 MG INJ IV ×2 (15:42→15:59)
[2019-09-01] MEDS: LACTATED RINGERS 1,000 ML 100 ML IV (15:47)
[2019-09-01] MEDS: OXYCODONE IR 5 MG TABLET PO ×2 (16:16→16:48)
--- NOTE | 2019-09-01 16:20 | SUR.PHASEI ---
No orders written for pt to receive lasix or for pt to urinate before leaving for home. Pt did receive a filter for possible stone passage.
[2019-09-01] MEDS: ACETAMINOPHEN 325 MG TABLET PO (16:48)
--- NOTE | 2019-09-01 17:12 | SUR.PHASEII ---
1711 to ana maria in w/c by RN. Daughter here and accompanying patient home (she is a nurse). Voided, urine pale pink tinged. Tolerating Po intake well. Stable on feet to ambulate to the bathroom. Stable.
== END 2019-09-01 17:11 | disposition home or self-care (01) ==
PROVIDERS: Referring Provider Specialist; Visit Provider Specialist
PROC: (CPT 52356; principal; 2019-09-01 13:30)
DX: N20.0 Calculus of kidney (principal); Z87.442 Personal history of urinary calculi; N40.1 Benign prostatic hyperplasia with lower urinary tract symptoms
CPT/HCPCS: 52356; 74018; 76000; J0690; J1100; J1170; J1885; J2250; J2405; J2704; J3010; J3410

== ENCOUNTER → 2019-09-07 14:14 | Outpatient (CLI) | payer MEDICARE, SELFPAY | LOC: LAB 14:15 | PROVIDERS: Visit Provider Specialist | DX: N39.0 Urinary tract infection, site not specified (principal); N20.1 Calculus of ureter | CPT/HCPCS: 81002; 87086; 99211 ==

== ENCOUNTER → 2019-09-08 09:26 | Outpatient (CLI) | payer MEDICARE, SELFPAY ==
[2019-09-11 08:38] LABS: COVID19 Sendout Not Detected (Not Detect)
== END ==
PROVIDERS: Visit Provider Physician Assistant
DX: Z01.812 Encounter for preprocedural laboratory examination (principal)
CPT/HCPCS: 87635

== ENCOUNTER 2019-09-11 12:12 | Day surgery (SDC) | payer MEDICARE, SELFPAY ==
[2019-09-11] VITALS (7 sets, daily range): BP systolic 104–138; BP diastolic 69–90; PULSE 60–93; RESP 7–16; TEMP 36–36.6; O2SAT 94–97; BMI 30.2
[2019-09-11] MEDS: LACTATED RINGERS 1,000 ML 42 ML IV (13:03)
--- NOTE | 2019-09-11 14:03 | PM.PREOP ---
Pre-operative Note Interval Note History & Physical reviewed/Exam performed by Physician: Yes Changes to H&P: No
[2019-09-11] MEDS: CEFAZOLIN 2 GM/100 ML FROZ.PIGGY IV (14:12)
--- NOTE | 2019-09-11 14:29 | P.OP_ITS ---
Operative Date/Time/Diagnoses Date of procedure: 09/11/19 Time of procedure: 14:30 Pre-op diagnosis: Retained left ureteral stent Post-op diagnosis: same Procedure & Clinicians Procedure: Cystoscopy and removal left ureteral stent Same procedure as scheduled: Yes Indications: Retained left ureteral stent Surgeon: Bob Crespo Click Yes if Unassisted: Yes Anesthesia Type: General Operative Notes Findings: Urethra normal. External sphincter coapted. Prostate 4 cm length with moderate lateral lobe obstruction. Bladder 1+ trabeculation. Left indwelling stent and retrieval line coiled up in the prostatic fossa. Closure Type: not applicable Specimen(s): none sent Estimated Blood Loss (mL): 0 Blood products transfused: none Tourniquet time (min): 0 Procedure in detail: Was positioned supine and administered general anesthesia. He was then repositioned in semi lithotomy, and the lower abdomen, genitalia, and and perineum were prepped and draped in sterile fashion. The 22 [place] panendoscope was then passed into the lower urinary tract with findings as described above. Using an alligator foreign body grasper the stent was engaged. It was then withdrawn and removed on the 1st attempt without incident. The patient was then repositioned supine, awakened, and transported to recovery in stable condition. Complications: none Post-operative Condition: stable Disposition: PACU Plan for aftercare: Discharge home
--- NOTE | 2019-09-11 14:54 | SUR.PHASEI ---
stable, requests PO rx for pain, awake, oriented. preparing to transfer to Phase Ii
[2019-09-11] MEDS: OXYCODONE/ACETAMINOPHEN 5/325 TABLET 1 TAB PO (14:57)
--- NOTE | 2019-09-11 15:13 | SUR.PHASEII ---
Assumed care from Lisha. Daughter given prescription to get filled. Pt w/o complaints. ready to go when meds are filled.
== END 2019-09-11 15:39 | disposition home or self-care (01) ==
PROVIDERS: Referring Provider Specialist; Visit Provider Specialist
PROC: (CPT 52310; principal; 2019-09-11 13:45)
DX: Z46.6 Encounter for fitting and adjustment of urinary device (principal)
CPT/HCPCS: 52310; J0690; J2704; J3010

== ENCOUNTER → 2019-10-30 10:01 | Outpatient (CLI) | payer MEDICARE, SELFPAY ==
--- NOTE | 2019-10-30 10:04 | DI.CT.S_ITS ---
PROCEDURE: CT KIDNEY URETER BLADDER (KUB) INDICATIONS: Urterolithiasis TECHNIQUE: Noncontrast 5 mm thick sections acquired from the diaphragms to the symphysis. 5 mm thick coronal and sagittal reformats were then performed. For radiation dose reduction, the following was used: automated exposure control, adjustment of mA and/or kV according to patient size. COMPARISON: [facility], CR, XR ABDOMEN 1V, 09/01/2019, 14:26. Merged With [facility], CR, XR ABDOMEN 1V, 08/18/2019, 20:13. Merged With [facility], CR, XR KUB, 08/18/2019, 18:29. Merged With [facility], CT, CT KIDNEY URETER BLADDER (KUB), 08/17/2019, 2:35. FINDINGS: Image quality: Excellent. Lung bases: Lung bases are clear. Heart size is normal. A small hiatal hernia is incidentally noted. Urinary system: Both kidneys are normal in size. Bilateral nonobstructing kidney stones are seen, which measure up to 3 mm on the right and up to 2 mm on the left. The previously seen left obstructing ureteral stone is no longer seen. No hydronephrosis or perinephric fat stranding. A simple appearing water density exophytic cyst is seen along the lateral posterior aspect of right kidney measuring 2.3 cm. Both ureters appear non-dilated throughout their expected courses. Bladder wall thickness is normal; no calcified bladder stones. Other solid organs: Liver is normal in size. Gallbladder has been removed. Pancreas is normal in contours. Spleen is normal in size. No adrenal nodules. Peritoneum and bowel: Unenhanced bowel loops demonstrate normal wall thickness and caliber. No free fluid or air. Colonic diverticulosis is seen, without findings of active diverticulitis. Nodes and vessels: No retroperitoneal or mesenteric adenopathy by size criteria. Aorta and inferior vena cava are normal in caliber. Atherosclerotic calcification is noted. Abdominal wall: No ventral hernias. Pelvis: No free pelvic fluid. No inguinal hernias or adenopathy. Right inguinal hernia repair change can be seen. Bones: No suspicious bony lesions. No vertebral body compression fractures. Mild levoconvex scoliotic curvature is noted. Age-appropriate bony degenerative changes are seen. IMPRESSION: Resolution of the previously seen obstructing left ureteral stone. No hydronephrosis is seen on either side. Nonobstructing bilateral renal stones are seen, right larger than left. Incidental note is made of: Small hiatal hernia Cholecystectomy Simple appearing exophytic right renal cyst Diverticulosis, without active diverticulitis Mild levoconvex scoliotic curvature. Right groin hernia repair Dictated by: Dougie Hull M.D. on 10/30/2019 at 10:04 Approved by: Dougie Hull M.D. on 10/30/2019 at 10:08
[2019-10-30 11:37] LABS: Calcium 9.3 mg/dL (8.4-10.2); Uric Acid 4.6 mg/dL (3.5-8.5)
[2019-10-31 07:38] LABS: Parathyroid Hormone Int 23 pg/mL (15-65)
== END ==
PROVIDERS: Referring Provider Specialist; Visit Provider Specialist
DX: N20.1 Calculus of ureter (principal); N20.0 Calculus of kidney; N28.1 Cyst of kidney, acquired; K44.9 Diaphragmatic hernia without obstruction or gangrene; K57.90 Diverticulosis of intestine, part unspecified, without perforation or abscess without bleeding; M41.9 Scoliosis, unspecified; Z90.49 Acquired absence of other specified parts of digestive tract
CPT/HCPCS: 36415; 74176; 82310; 83970; 84550

== ENCOUNTER → 2020-01-05 09:07 | Outpatient (CLI) | payer MEDICARE, SELFPAY ==
[2020-01-05 10:15] LABS: Hemoglobin A1C% w Est Avg Glu 6.2 % (4.0-6.0)
[2020-01-05 10:48] LABS: Alanine Aminotransferase 26 IU/L (<50); Albumin 4.2 g/dL (3.5-5.0); Albumin Globulin Ratio 1.3 (1.0-2.8); Alkaline Phosphatase 112 U/L (38-126); Aspartate Aminotransferase 28 IU/L (17-59); BUN Creatinine Ratio 17.8 (6-22); Bilirubin Total 0.4 mg/dL (0.2-1.3); Blood Urea Nitrogen 18 mg/dL (9-20); Calcium 9.4 mg/dL (8.4-10.2); Carbon Dioxide 32 mmol/L (22-32); Chloride 102 mmol/L (98-107); Cholesterol 168 mg/dL (140-199); Estimated Glomerular Filt Rate > 60.0 mL/min (>60); Globulin 3.2 g/dL (1.7-4.1); Glucose 99 mg/dL (80-110); HDL Cholesterol 38 mg/dL (40-60); HEMOLYSIS < 15 (0-50); LDL Cholesterol Calculated 107 mg/dL (<100); Potassium 4.7 mmol/L (3.4-5.1); Sodium 139 mmol/L (137-145); Total Protein 7.4 g/dL (6.3-8.2); Triglycerides 113 mg/dL (35-150)
[2020-01-05 10:53] LABS: Add Manual Diff / Slide Review NO; Basophils Absolute Auto 0 /uL (0-100); Basophils Percent Auto 0.8 % (0-2); Eosinophils Absolute Auto 200 /uL (0-450); Eosinophils Percent Auto 2.9 % (2-4); Hematocrit 41.6 % (41-53); Hemoglobin 14.4 g/dL (13.5-17.5); Lymphocytes Absolute Auto 1900 /uL (1100-4500); Lymphocytes Percent Auto 32.2 % (25-40); Mean Corpuscular HGB Conc 34.6 % (30-36); Mean Corpuscular Hemoglobin 31.9 PG (26-34); Mean Corpuscular Volume 92.1 fL (80-100); Monocytes Absolute Auto 400 /uL (0-900); Monocytes Percent Auto 6.7 % (3-14); Neutrophils Absolute Auto 3400 /uL (1500-7000); Neutrophils Percent Auto 57.4 % (50-75); Platelet Count 262 X10^3/uL (150-400); Red Blood Cell Count 4.51 X10^6/uL (4.5-5.9); Red Cell Distribution Width 13.3 % (11.6-14.8); White Blood Cell Count 5.9 X10^3/uL (4.5-11.0)
== END ==
PROVIDERS: PCP Internal Medicine; Referring Provider Internal Medicine; Visit Provider Internal Medicine
DX: E11.9 Type 2 diabetes mellitus without complications (principal); M15.0 Primary generalized (osteo)arthritis
CPT/HCPCS: 36415; 80053; 80061; 83036; 85025

== ENCOUNTER 2020-09-07 17:39 | Inpatient (IN) | payer MEDICARE, SELFPAY ==
[2020-09-07] VITALS (19 sets, daily range): BP systolic 97–145; BP diastolic 63–88; PULSE 88–118; RESP 16–23; TEMP 36.7; O2SAT 83–98; BMI 27.3
--- NOTE | 2020-09-07 17:45 | DI.RAD.S_ITS ---
PROCEDURE: XR CHEST 1V INDICATIONS: chest pain TECHNIQUE: One view of the chest was acquired. COMPARISON: None. FINDINGS: Surgical changes and devices: None. Lungs and pleura: Lungs are clear. No pleural effusions or pneumothorax. Mediastinum: Mediastinal contours appear normal. Heart size is normal. Bones and chest wall: No suspicious bony lesions. Overlying soft tissues appear unremarkable. IMPRESSION: No acute pulmonary process. Dictated by: Cathryn Lowe M.D. on 09/07/2020 at 18:44 Approved by: Cathryn Lowe M.D. on 09/07/2020 at 18:44
[2020-09-07] MEDS: ASPIRIN 81 MG CHEW TAB 324 MG PO (18:01)
[2020-09-07 18:38] LABS: Add Manual Diff / Slide Review NO; Basophils Absolute Auto 0 /uL (0-100); Basophils Percent Auto 0.1 % (0-2); Eosinophils Absolute Auto 100 /uL (0-450); Eosinophils Percent Auto 0.7 % (2-4); Hematocrit 47.3 % (41-53); Hemoglobin 15.9 g/dL (13.5-17.5); Lymphocytes Absolute Auto 500 /uL (1100-4500); Lymphocytes Percent Auto 3.6 % (25-40); Mean Corpuscular HGB Conc 33.7 % (30-36); Mean Corpuscular Hemoglobin 31.2 PG (26-34); Mean Corpuscular Volume 92.8 fL (80-100); Monocytes Absolute Auto 400 /uL (0-900); Neutrophils Absolute Auto 12700 /uL (1500-7000); Neutrophils Percent Auto 92.6 % (50-75); Platelet Count 253 X10^3/uL (150-400); Red Blood Cell Count 5.09 X10^6/uL (4.5-5.9); Red Cell Distribution Width 13.5 % (11.6-14.8); White Blood Cell Count 13.8 X10^3/uL (4.5-11.0)
[2020-09-07 18:42] LABS: Alanine Aminotransferase 29 IU/L (<50); Albumin 4.8 g/dL (3.5-5.0); Albumin Globulin Ratio 1.2 (1.0-2.8); Alkaline Phosphatase 147 U/L (38-126); Aspartate Aminotransferase 34 IU/L (17-59); BUN Creatinine Ratio 19.2 (6-22); Bilirubin Total 0.5 mg/dL (0.2-1.3); Blood Urea Nitrogen 23 mg/dL (9-20); Calcium 9.8 mg/dL (8.4-10.2); Carbon Dioxide 24 mmol/L (22-32); Chloride 109 mmol/L (98-107); Creatine Kinase 62 U/L (55-170); Estimated Glomerular Filt Rate > 60.0 mL/min (>60); Globulin 4.1 g/dL (1.7-4.1); Glucose 140 mg/dL (80-110); HEMOLYSIS < 15 (0-50); Lipase 165 U/L (23-300); Potassium 4.2 mmol/L (3.4-5.1); Sodium 144 mmol/L (137-145); Total Protein 8.9 g/dL (6.3-8.2)
[2020-09-07 18:53] LABS: Troponin I < 0.012 ng/mL (0.01-0.034)
--- NOTE | 2020-09-07 18:53 | ED_ITS ---
HPI - Chest Pain General Chief Complaint: Chest Pain Stated Complaint: Poss [place] in Progress Time Seen by Provider: 09/07/20 17:44 Source: patient Mode of arrival: Ambulatory Limitations: no limitations History of Present Illness HPI narrative: 70-year-old male former smoker with history of BPH, chronic pain in his neck and back presents with family in the chief complaint of 2 days of multiple symptoms including chest pain which is sometimes sharp and stabbing and other times pressure-like that seems to radiate into his left arm. He states that he was sleeping when he woke up with left arm pain and noticed he was also having pain in his chest. He denies any other radiation of this pain. He states there is no obvious provocation or palliation of the discomfort. He states this has been rather persistent since its onset any had similar symptoms when he had a bleeding ulcer years ago. He takes no blood thinners and has very minimal alcohol intake. He denies recent travel. He is not dizzy nor weak or lightheaded. He admits to significant abdominal pain with nausea but no vomiting. He has had no change in bowel crzu MD complaint: chest pain Related Data Home Medications Medication Instructions Recorded Confirmed ibuprofen 600 mg PO Q8HR 02/02/19 09/08/20 carisoprodol [Soma] 50 mg PO BEDTIME 09/08/20 09/08/20 Previous Rx's Medication Instructions Recorded tramadol 50 mg tablet 50 mg PO Q8H PRN #20 tab 10/25/19 tamsulosin 0.4 mg capsule 0.4 mg PO DAILY #30 cap 01/03/20 Allergies Allergy/AdvReac Type Severity Reaction Status Date / Time No Known Drug Allergies Allergy Verified 09/07/20 17:43 Review of Systems Constitutional Constitutional: Denies chills, Denies fatigue, Denies fever(s), Denies frequent falls, Denies lethargy and Denies weakness Eyes Eyes: Denies change in vision, Denies eye discharge, Denies irritation and Denies loss of vision ENT Ears, Nose, Mouth, and Throat: Denies change in voice, Denies dizziness, Denies neck pain, Denies sore throat and Denies throat swelling Cardiovascular Cardiovascular: Reports chest pain, Denies irregular heart rhythm, Denies lightheadedness, Denies palpitations, Denies dyspnea, Denies dyspnea on exertion and Denies orthopnea Respiratory Respiratory: Denies cough, Denies dyspnea, Denies dyspnea on exertion and Denies wheezing Gastrointestinal Gastrointestinal: Reports abdominal pain, Denies change in bowel habits, Denies diarrhea, Reports nausea and Denies vomiting Musculoskeletal Musculoskeletal: Denies neck pain and Denies numbness Integumentary/Breasts Skin/Breast: Denies pruritus, Denies erythema, Denies rash and Denies wounds Neurologic Neurologic: Denies behavioral changes, Denies confusion, Denies dizziness, Denies frequent falls, Denies loss of vision, Denies numbness and Denies weakness Psychiatric Psychiatric: Denies anxiety, Denies behavioral changes, Denies confusion, Denies depression, Denies homicidal ideation and Denies suicidal ideation Endocrine Endocrine: Denies fatigue, Denies flushing and Denies palpitations Hematologic/Lymphatic Hematologic/Lymphatic: Denies easy bruising Allergic/Immunologic Allergic/Immunologic: Denies urticaria, Denies throat swelling and Denies wheezing Patient History Medical History Acid reflux Arthritis Barretts esophagus Chronic back pain Diabetes mellitus, type II Diverticulitis Enlarged prostate Hearing loss History of bleeding ulcers Hx of type 2 diabetes mellitus Kidney stones (08/17/19) Renal cyst, right Skin cancer Surgical History History of arthroplasty of left knee History of cataract surgery Hx of cholecystectomy Hx of cystoscopy (08/18/19) S/P right inguinal herniorrhaphy Family History Father History of open heart surgery Mother Breast cancer Social History household members: family and children Smoking Status: Former smoker alcohol intake: current Smoking Status: Former smoker alcohol intake frequency: a few times a month Substance Use Type: does not use Exam Narrative Exam Narrative: GENERAL: [age] year old patient appears stated age. Well-developed patient, in moderate distress. HEAD: Atraumatic. Normocephalic. EYES: Pupils equal round and reactive. Extraocular motions intact. No scleral icterus. No injection or drainage. ENT: Nose without bleeding, purulent drainage. Throat without erythema, tonsillar hypertrophy or exudate. Airway patent. NECK: Trachea midline. Non tender CARDIOVASCULAR: Regular rate and rhythm without murmurs, gallops, or rubs. RESPIRATORY: Clear to auscultation. Breath sounds equal bilaterally. No wheezes, rales, or rhonchi. GASTROINTESTINAL: Abdomen soft, tender, decreased bowel sounds throughout, nondistended. EXTREMITIES: No edema or joint tenderness. BACK: Nontender without deformity or crepitance. No flank tenderness. NEURO: AOx3. 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) Stat 09/07/20 23:15 XR chest 1V Stat Acetaminophen (Acetaminophen 650 Mg Supp) 650 mg [place] Q4HR PRN PRN Reason: Fever/Mild Pain (1-3) Hydromorphone HCl (Hydromorphone 0.5 Mg Inj) 0.5 mg IV Q3H PRN PRN Reason: Pain, Moderate (4-6) Last Admin: 09/08/20 03:03 Dose: 0.5 mg Documented by: ASH Sodium Chloride (Normal Saline 0.9%) 1,000 mls @ 100 mls/hr IV CONT PILY Last Admin: 09/08/20 01:32 Dose: 100 mls/hr Documented by: ASH Ketorolac Tromethamine (Ketorolac 30 Mg/Ml Vial) 15 mg IV Q8H PRN PRN Reason: Pain, Mild (1-3) Stop: 09/13/20 00:29 Last Admin: 09/08/20 01:25 Dose: 15 mg Documented by: ASH Metoclopramide HCl (Metoclopramide 10 Mg/2 Ml Inj) 5 mg IV Q6HR PRN PRN Reason: Nausea And Vomiting Last Admin: 09/08/20 01:26 Dose: 5 mg Documented by: ASH Naloxone HCl (Naloxone 0.4 Mg/Ml Vial) 0.2 mg IV Q2MIN PRN PRN Reason: Opiate Reversal Nitroglycerin (Nitroglycerin 0.4 Mg Sl Tab) 0.4 mg SL [id number] PRN PRN Reason: Chest Pain Last Admin: 09/07/20 19:46 Dose: 0.4 mg Documented by: GEORGES Ondansetron HCl (Ondansetron 4 Mg/2 Ml Inj) 4 mg IV Q6HR PRN PRN Reason: Nausea And Vomiting Discontinued Medications Aspirin (Aspirin 81 Mg Chew Tab) 324 mg PO NOW ONE Stop: 09/07/20 17:45 Last Admin: 09/07/20 18:01 Dose: 324 mg Documented by: ADRIANE Hydromorphone HCl (Hydromorphone 0.5 Mg Inj) 0.5 mg IV NOW ONE Stop: 09/07/20 20:49 Last Admin: 09/07/20 20:52 Dose: 0.5 mg Documented by: GEORGES Hydromorphone HCl (Hydromorphone 0.5 Mg Inj) 0.5 mg IV NOW ONE Stop: 09/07/20 22:16 Last Admin: 09/07/20 22:24 Dose: 0.5 mg Documented by: HERNANDEZ Ondansetron HCl (Ondansetron 4 Mg/2 Ml Inj) 4 mg IV NOW ONE Stop: 09/07/20 19:09 Last Admin: 09/07/20 19:46 Dose: 4 mg Documented by: GEORGES Consultations Consultation #1: call to general surgery. No indication for surgical intervention, happy to play a role in consultation, requests admission to hospitalist Consultation #2: hospitalist happy to accept Vital Signs Vital signs: Vital Signs - 8 hr 09/07/20 19:55 09/07/20 20:00 09/07/20 20:05 Pulse Rate 118 H 110 H 105 H Respiratory Rate 17 18 17 Blood Pressure 97/63 103/67 118/73 Pulse Oximetry 92 94 94 09/07/20 20:10 09/07/20 20:38 09/07/20 20:55 Pulse Rate 101 H 88 99 H Respiratory Rate 20 20 16 Blood Pressure 123/77 145/83 H Pulse Oximetry 95 83 L 98 09/07/20 21:00 09/07/20 21:30 09/07/20 21:40 Pulse Rate 98 H 95 H 88 Respiratory Rate 17 17 18 Blood Pressure 119/80 127/83 143/87 H Pulse Oximetry 94 94 96 09/07/20 22:00 09/07/20 22:30 09/07/20 23:00 Pulse Rate 94 H 92 H 89 Respiratory Rate 16 23 16 Blood Pressure 136/87 135/85 130/86 Pulse Oximetry 94 95 95 09/07/20 23:30 Pulse Rate 89 Respiratory Rate 16 Blood Pressure 130/88 Pulse Oximetry MDM - Chest Pain Lab Data Result diagrams: 09/07/20 17:50 09/07/20 17:50 Labs: Lab Results 09/07/20 09/07/20 09/07/20 Range/Units 17:50 17:50 17:50 WBC 13.8 H (4.5-11.0) X10^3/uL RBC 5.09 (4.5-5.9) X10^6/uL Hgb 15.9 (13.5-17.5) g/dL Hct 47.3 (41-53) % MCV 92.8 (80-100) fL MCH 31.2 (26-34) PG MCHC 33.7 (30-36) % RDW 13.5 (11.6-14.8) % Plt Count 253 (150-400) X10^3/uL Neut % (Auto) 92.6 H (50-75) % Lymph % (Auto) 3.6 L (25-40) % [place] % (Auto) 3.0 (3-14) % Eos % (Auto) 0.7 L (2-4) % Baso % (Auto) 0.1 (0-2) % Neut # (Auto) 91181 H (7225-9826) /uL Lymph # (Auto) 500 L (6455-3539) /uL [place] # (Auto) 400 (0-900) /uL Eos # (Auto) 100 (0-450) /uL Baso # (Auto) 0 (0-100) /uL Sodium 144 (137-145) mmol/L Potassium 4.2 (3.4-5.1) mmol/L Chloride 109 H (98-107) mmol/L Carbon Dioxide 24 (22-32) mmol/L BUN 23 H (9-20) mg/dL Creatinine 1.20 (0.66-1.25) mg/dL Estimated GFR > 60.0 (>60) mL/min BUN/Creatinine Ratio 19.2 (6-22) Glucose 140 H (80-110) mg/dL Hemoglobin A1c (4.0-6.0) % Calcium 9.8 (8.4-10.2) mg/dL Total Bilirubin 0.5 (0.2-1.3) mg/dL AST 34 (17-59) IU/L ALT 29 (<50) IU/L Alkaline Phosphatase 147 H (38-126) U/L Total Creatine Kinase 62 (55-170) U/L CK-MB (CK-2) TNP CK-MB (CK-2) Rel Index TNP Troponin I < 0.012 (0.01-0.034) ng/mL Total Protein 8.9 H (6.3-8.2) g/dL Albumin 4.8 (3.5-5.0) g/dL Globulin 4.1 (1.7-4.1) g/dL Albumin/Globulin Ratio 1.2 (1.0-2.8) Lipase 165 (23-300) U/L SARS-CoV-2 (PCR) Negative (Negative) 09/07/20 09/07/20 Range/Units 17:50 21:51 WBC (4.5-11.0) X10^3/uL RBC (4.5-5.9) X10^6/uL Hgb (13.5-17.5) g/dL Hct (41-53) % MCV (80-100) fL MCH (26-34) PG MCHC (30-36) % RDW (11.6-14.8) % Plt Count (150-400) X10^3/uL Neut % (Auto) (50-75) % Lymph % (Auto) (25-40) % [place] % (Auto) (3-14) % Eos % (Auto) (2-4) % Baso % (Auto) (0-2) % Neut # (Auto) (6653-2305) /uL Lymph # (Auto) (7640-2407) /uL [place] # (Auto) (0-900) /uL Eos # (Auto) (0-450) /uL Baso # (Auto) (0-100) /uL Sodium (137-145) mmol/L Potassium (3.4-5.1) mmol/L Chloride (98-107) mmol/L Carbon Dioxide (22-32) mmol/L BUN (9-20) mg/dL Creatinine (0.66-1.25) mg/dL Estimated GFR (>60) mL/min BUN/Creatinine Ratio (6-22) Glucose (80-110) mg/dL Hemoglobin A1c 6.1 H (4.0-6.0) % Calcium (8.4-10.2) mg/dL Total Bilirubin (0.2-1.3) mg/dL AST (17-59) IU/L ALT (<50) IU/L Alkaline Phosphatase (38-126) U/L Total Creatine Kinase (55-170) U/L CK-MB (CK-2) CK-MB (CK-2) Rel Index Troponin I < 0.012 (0.01-0.034) ng/mL Total Protein (6.3-8.2) g/dL Albumin (3.5-5.0) g/dL Globulin (1.7-4.1) g/dL Albumin/Globulin Ratio (1.0-2.8) Lipase (23-300) U/L SARS-CoV-2 (PCR) (Negative) Point of Care Testing Glucose POC [address] scan - abdomen/pelvis: Radiologist's Impression: [address] Scan ReportSigned Patient: Elian Lopez [facility]#: [id number]: 2Acct:[id number]/Sex: 70 / MDate of Service: 09/07/20Loc: EDAccession Number: [id number] Procedure: CT angio chest abdomen pelvis Ordering Provider: Francisco De Leon D.O. PROCEDURE: CT ANGIO CHEST ABDOMEN PELVIS INDICATIONS: severe chest and abdomen pain TECHNIQUE: Precontrast 5 mm thick sections acquired from the lung apices to the iliac crests. After the administration of intravenous contrast, 2.5 mm thick sections again acquired from the lung apices to the iliac crests. Maximum intensity projection (MIP) oblique sagittal and coronal reformats were then acquired. For radiation dose reduction, the following was used: automated exposure control. COMPARISON: [facility], CT, CT KIDNEY URETER BLADDER (KUB), 08/17/2019, 2:35. [facility], CT, CT KIDNEY URETER BLADDER (KUB), 10/30/2019, 10:28. FINDINGS: Image quality: Excellent. AORTA: The aorta demonstrates no areas of hemodynamically significant stenosis, vascular occlusion, aneurysmal dilation or dissection. Scattered areas of atherosclero tic calcifications are present. CHEST: Lungs and pleura: No acute airspace opacities. No pleural effusions or pneumothorax. Central and peripheral airways are patent and normal in caliber. Scattered calcified are noted. Mediastinum: Heart size is normal. No pericardial effusion. Coronary calcifications are present. No mediastinal or hilar adenopathy by size criteria. Central pulmonary arteries are normal in size. Esophagus is fluid-filled throughout the majority its course. It is noted the visualized portions of the distal esophagus on the 10/30/2019 exam also demonstrated fluid-filled distal esophagus. Small amount of right periesophageal fluid is noted, also unchanged.. No hiatal hernias. Bones and chest wall: No axillary adenopathy by size criteria. Thyroid gland i s . No suspicious bony lesions. No vertebral body compression fractures. ABDOMEN: Vasculature: Celiac trunk and mesenteric arteries are patent. Renal arteries are also patent. Solid organs: Liver is normal in size and enhancement. Gallbladder has been removed . Biliary system is non dilated. Pancreas enhances normally. Spleen is normal in size and enhancement. No adrenal nodules. Both kidneys are normal in size and enhancement, without hydronephrosis. Nonobstructing bilateral punctate renal calculi are noted. Peritoneum and bowel: No free fluid or air. There is a mild appearance of relatively diffuse dilated fluid-filled small bowel loops within the mid abdomen extending to the pelvis. Definitive transition point is not clearly identified. Stomach is distended with fluid. Mild scattered colonic diverticular present without inflammatory change. Nodes and vessels: No retroperitoneal or mesenteric adenopathy by size criteria. Inferior vena cava is normal in morphology. Miscellaneous: No ventral hernias. PELVIS: Genitourinary: Bladder wall thickness is normal. Miscellaneous: No inguinal hernias or adenopathy. No ventral hernias. Bones: No suspicious bony lesions. No vertebral body compression fractures. IMPRESSION: 1. Diffuse appearance of dilated fluid-filled small bowel loops as above without definitive transition point most consistent with partial small bowel obstruction. 2. Persistent appearance of fluid-filled esophagus of uncertain etiology. 3. No visualized aortic dissection. Dictated by: Cathryn Lowe M.D. on 09/07/2020 at 21:49 Approved by: Cathryn Lowe M.D. on 09/07/2020 at 21:55 Discharge Plan Departure Patient Disposition: Admitted As Inpatient Clinical Impression: Small bowel obstruction Admit Date/Time: 09/07/20 23:40 Admit Provider: Kayce Alvarez
--- NOTE | 2020-09-07 19:08 | DI.CT.S_ITS ---
PROCEDURE: CT ANGIO CHEST ABDOMEN PELVIS INDICATIONS: severe chest and abdomen pain TECHNIQUE: Precontrast 5 mm thick sections acquired from the lung apices to the iliac crests. After the administration of intravenous contrast, 2.5 mm thick sections again acquired from the lung apices to the iliac crests. Maximum intensity projection (MIP) oblique sagittal and coronal reformats were then acquired. For radiation dose reduction, the following was used: automated exposure control. COMPARISON: [facility], CT, CT KIDNEY URETER BLADDER (KUB), 08/17/2019, 2:35. [facility], CT, CT KIDNEY URETER BLADDER (KUB), 10/30/2019, 10:28. FINDINGS: Image quality: Excellent. AORTA: The aorta demonstrates no areas of hemodynamically significant stenosis, vascular occlusion, aneurysmal dilation or dissection. Scattered areas of atherosclerotic calcifications are present. CHEST: Lungs and pleura: No acute airspace opacities. No pleural effusions or pneumothorax. Central and peripheral airways are patent and normal in caliber. Scattered calcified are noted. Mediastinum: Heart size is normal. No pericardial effusion. Coronary calcifications are present. No mediastinal or hilar adenopathy by size criteria. Central pulmonary arteries are normal in size. Esophagus is fluid-filled throughout the majority its course. It is noted the visualized portions of the distal esophagus on the 10/30/2019 exam also demonstrated fluid-filled distal esophagus. Small amount of right periesophageal fluid is noted, also unchanged.. No hiatal hernias. Bones and chest wall: No axillary adenopathy by size criteria. Thyroid gland is . No suspicious bony lesions. No vertebral body compression fractures. ABDOMEN: Vasculature: Celiac trunk and mesenteric arteries are patent. Renal arteries are also patent. Solid organs: Liver is normal in size and enhancement. Gallbladder has been removed . Biliary system is non dilated. Pancreas enhances normally. Spleen is normal in size and enhancement. No adrenal nodules. Both kidneys are normal in size and enhancement, without hydronephrosis. Nonobstructing bilateral punctate renal calculi are noted. Peritoneum and bowel: No free fluid or air. There is a mild appearance of relatively diffuse dilated fluid-filled small bowel loops within the mid abdomen extending to the pelvis. Definitive transition point is not clearly identified. Stomach is distended with fluid. Mild scattered colonic diverticular present without inflammatory change. Nodes and vessels: No retroperitoneal or mesenteric adenopathy by size criteria. Inferior vena cava is normal in morphology. Miscellaneous: No ventral hernias. PELVIS: Genitourinary: Bladder wall thickness is normal. Miscellaneous: No inguinal hernias or adenopathy. No ventral hernias. Bones: No suspicious bony lesions. No vertebral body compression fractures. IMPRESSION: 1. Diffuse appearance of dilated fluid-filled small bowel loops as above without definitive transition point most consistent with partial small bowel obstruction. 2. Persistent appearance of fluid-filled esophagus of uncertain etiology. 3. No visualized aortic dissection. Dictated by: Cathryn Lowe M.D. on 09/07/2020 at 21:49 Approved by: Cathryn Lowe M.D. on 09/07/2020 at 21:55
[2020-09-07 19:22] LABS: COVID19 - ADMIT (NP swab/PCR) Negative (Negative)
[2020-09-07] MEDS: NITROGLYCERIN 0.4 MG SL TAB SL (19:46)
[2020-09-07] MEDS: ONDANSETRON 4 MG/2 ML INJ IV (19:46)
[2020-09-07] MEDS: HYDROMORPHONE 0.5 MG INJ IV ×2 (20:52→22:24)
[2020-09-07 22:24] LABS: Troponin I < 0.012 ng/mL (0.01-0.034)
--- NOTE | 2020-09-07 23:15 | DI.RAD.S_ITS ---
PROCEDURE: XR CHEST 1V INDICATIONS: NG tube placement TECHNIQUE: One view of the chest was acquired. COMPARISON: Merged With [facility], , XR CHEST 1V, 09/07/2020, 18:16. FINDINGS: Surgical changes and devices: NG tube tip projects to the stomach. Lungs and pleura: Lungs are clear. No pleural effusions or pneumothorax. Mediastinum: Mediastinal contours appear normal. Heart size is normal. Bones and chest wall: No suspicious bony lesions. Overlying soft tissues appear unremarkable. IMPRESSION: NG tube tip projects to the stomach. No evidence acute pulmonary process. Dictated by: Shiva Mcguire M.D. on 09/08/2020 at 7:18 Approved by: Shiva Mcguire M.D. on 09/08/2020 at 7:19
[2020-09-08] VITALS (8 sets, daily range): BP systolic 124–152; BP diastolic 75–89; PULSE 63–78; RESP 16–18; TEMP 36.1–36.8; O2SAT 94–98; BMI 27.3
--- NOTE | 2020-09-08 00:32 | PM.HP.1 ---
History of Present Illness History of Present Illness Date Patient Seen: 09/08/20 Time Patient Seen: 00:33 Chief complaint: Poss OK in Progress Narrative: Elian Mathews 70-year-old male, former smoker with history of BPH, chronic osteoarthritis treated with carisprodol, tramadol and ibuprofen presented to the ED with a complaint of 2 days of multiple symptoms including chest pain which is sometimes sharp and stabbing and other times pressure-like that seems to radiate into his left arm. He felt sweaty and hot, palpitatons, and dizzy prior to the onset of chest pain. He states that he was sleeping when he woke up with left arm pain and noticed he was also having pain in his chest.He denies recent travel. He is not dizzy nor weak or lightheaded. He admits to significant lower abdominal and pelvic pain with nausea without vomiting. He had a reduced bowel movement the day he presented to the ED. In the ED, they eulogio troponins and evaluated his EKG and ruled out a cardiac cause. Due to the persistent epigastric pain concerning for a dissection, they did a CTA of the chest abdomen and pelvis with findings of dilated fluid-filled small bowel loops as above without definitive transition point most consistent with partial small bowel obstruction, 2. Persistent appearance of fluid-filled esophagus of uncertain etiology, ruling out no visualized aortic dissection. Patient's vital signs are all within normal limits, WBC is 13.8 with a left shift of 12,700 neutrophils, glucose was 140, alk-phos was 147, and COVID-19 PCR is negative. In the ED, he was administered IV dilaudid for pain and placed an NG tube. Patient History Medical History Acid reflux Arthritis Barretts esophagus Chronic back pain Diabetes mellitus, type II Diverticulitis Enlarged prostate Hearing loss History of bleeding ulcers Hx of type 2 diabetes mellitus Kidney stones (08/17/19) Renal cyst, right Skin cancer Surgical History History of arthroplasty of left knee History of cataract surgery Hx of cholecystectomy Hx of cystoscopy (08/18/19) S/P right inguinal herniorrhaphy Family & Social History Family History Father History of open heart surgery Mother Breast cancer Social History: household members children Safety & Behavioral: Feels Safe in Current Yes Environment Tobacco & Substance use: Smoking Status Former smoker alcohol intake denies alcohol intake frequency a few times a month Substance Use Type periodcally, marijuana Meds Home Medications and Allergies Home Medications Medication Instructions Recorded Confirmed Type ibuprofen 600 mg PO Q8HR 02/02/19 09/08/20 History tramadol 50 mg tablet 50 mg PO Q8H PRN #20 tab 10/25/19 09/08/20 Rx tamsulosin 0.4 mg capsule 0.4 mg PO DAILY #30 cap 01/03/20 09/08/20 Rx carisoprodol [Soma] 50 mg PO BEDTIME 09/08/20 09/08/20 History Allergies Allergy/AdvReac Type Severity Reaction Status Date / Time No Known Drug Allergies Allergy Verified 09/07/20 17:43 Review of Systems Review of Systems ROS: Yes All systems reviewed with the patient and are negative except as otherwise documented Exam Vital Signs (past 8 hours): - 09/07/20 17:43 09/07/20 18:34 09/07/20 19:00 Temperature 98.0 F Pulse Rate 104 H 102 H 98 H Respiratory Rate 23 20 20 Blood Pressure 110/71 123/81 Pulse Oximetry 98 98 94 09/07/20 19:30 09/07/20 19:46 09/07/20 19:50 Temperature Pulse Rate 95 H 96 H 100 H Respiratory Rate 19 16 Blood Pressure 131/84 131/64 127/79 Pulse Oximetry 95 96 09/07/20 19:55 09/07/20 20:00 09/07/20 20:05 Temperature Pulse Rate 118 H 110 H 105 H Respiratory Rate 17 18 17 Blood Pressure 97/63 103/67 118/73 Pulse Oximetry 92 94 94 09/07/20 20:10 09/07/20 20:38 09/07/20 20:55 Temperature Pulse Rate 101 H 88 99 H Respiratory Rate 20 20 16 Blood Pressure 123/77 145/83 H Pulse Oximetry 95 83 L 98 09/07/20 21:00 09/07/20 21:30 09/07/20 21:40 Temperature Pulse Rate 98 H 95 H 88 Respiratory Rate 17 17 18 Blood Pressure 119/80 127/83 143/87 H Pulse Oximetry 94 94 96 09/07/20 22:00 09/07/20 22:30 09/07/20 23:00 Temperature Pulse Rate 94 H 92 H 89 Respiratory Rate 16 23 16 Blood Pressure 136/87 135/85 130/86 Pulse Oximetry 94 95 95 09/07/20 23:30 Temperature Pulse Rate 89 Respiratory Rate 16 Blood Pressure 130/88 Pulse Oximetry Oxygen Delivery Method Room Air Narrative Exam Narrative: Gen: Alert, oriented, well-developed 70 y.o. male, appears mildly uncomfortable HEENT: normocephalic, atraumatic, conjunctiva clear, sclera non-icteric, NG tube in place, oral mucosa pink and moist Neck: supple, full ROM, no JVD, trachea is midline Resp: Lungs CTA, non-labored breathing CV: RRR, no murmur or rubs Abd: soft, non-tender, hypoactive BTs Skin: healed surgical scar on left knee, no lesions or rashes, dry and intact Neuro: Alert and oriented X 4 w/no focal deficits. Speech clear and coherent. Extremities: moves all 4 extremities, is ambulatory, negative Yordy?s sign Psyche: normal mood and affect. Objective Labs Result Diagrams: 09/07/20 17:50 09/07/20 17:50 Labs: Laboratory Results - last 24 hr 09/07/20 09/07/20 09/07/20 17:50 17:50 17:50 WBC 13.8 H RBC 5.09 Hgb 15.9 Hct 47.3 MCV 92.8 MCH 31.2 MCHC 33.7 RDW 13.5 Plt Count 253 Neut % (Auto) 92.6 H Lymph % (Auto) 3.6 L [place] % (Auto) 3.0 Eos % (Auto) 0.7 L Baso % (Auto) 0.1 Neut # (Auto) 59716 H Lymph # (Auto) 500 L [place] # (Auto) 400 Eos # (Auto) 100 Baso # (Auto) 0 Sodium 144 Potassium 4.2 Chloride 109 H Carbon Dioxide 24 BUN 23 H Creatinine 1.20 Estimated GFR > 60.0 BUN/Creatinine Ratio 19.2 Glucose 140 H Calcium 9.8 Total Bilirubin 0.5 AST 34 ALT 29 Alkaline Phosphatase 147 H Total Creatine Kinase 62 CK-MB (CK-2) TNP CK-MB (CK-2) Rel Index TNP Troponin I < 0.012 Total Protein 8.9 H Albumin 4.8 Globulin 4.1 Albumin/Globulin Ratio 1.2 Lipase 165 SARS-CoV-2 (PCR) Negative 09/07/20 21:51 WBC RBC Hgb Hct MCV MCH MCHC RDW Plt Count Neut % (Auto) Lymph % (Auto) [place] % (Auto) Eos % (Auto) Baso % (Auto) Neut # (Auto) Lymph # (Auto) [place] # (Auto) Eos # (Auto) Baso # (Auto) Sodium Potassium Chloride Carbon Dioxide BUN Creatinine Estimated GFR BUN/Creatinine Ratio Glucose Calcium Total Bilirubin AST ALT Alkaline Phosphatase Total Creatine Kinase CK-MB (CK-2) CK-MB (CK-2) Rel Index Troponin I < 0.012 Total Protein Albumin Globulin Albumin/Globulin Ratio Lipase SARS-CoV-2 (PCR) Assessment & Plan Assessment & Plan narrative: Elian Barton will be admitted to the inpatient service for the medical management of a partial small bowel obstruction. 1. Partial small bowel obstruction, acute and present on admission Likely due to history of prior laproscopic abdominal surgery and current medications which can slow peristolsis Dr. Alcantara consulting and will follow Pain control w/low dose IV dilaudid, and IV toradal, use judiciously Fever control w/tylenol suppositories 2. History of diabetes type 2, currently w/an elevated glucose A1c added on is 6.1, classifying as prediabetic VTE prophylaxis: Wells risk score: 0 Bilateral SCDs Consults: Dr. Cheli Alcantara, General Surgery consult and involvement is appreciated. Patient is admitted under inpatient status with expected length of stay greater than 2 midnights due to severity of presenting symptoms, risk of adverse event, and complexity of treatment plan. FEN: IV ns at 100 ml/hour, strict NPO, BMP and magnesium in the am. Dispo: Probable discharge to home Code Status: Full code as discussed with patient. Priyanka Barton, daughter and surrogate/POA COVID-19 COVID-19 status: Negative Result date/Date tested (Pos, Neg/Pending): 09/07/20 Scores Wells' Criteria for PE Clinical signs and symptoms of DVT: No PE is #1 Dx or equally likely: No Heart rate > 100: No Immobilization at least 3 days or surg in previous 4 weeks: No History of PE or DVT: No Hemoptysis: No Malignancy w/Treatment within 6 months or palliative: No Wells' PE Score total: 0 Quality VTE Deep Vein Thrombosis/Pulmonary Embolism Present on Admission: No MIPS - Admit I confirm the patient?s Advance Care Plan is present, Code status is documented, Surrogate decision maker is in patient?s record [If Yes, STOP here]: Yes
[2020-09-08] MEDS: KETOROLAC 30 MG/ML VIAL 15 MG IV (01:25)
[2020-09-08] MEDS: METOCLOPRAMIDE 10 MG/2 ML INJ 5 MG IV (01:26)
[2020-09-08] MEDS: SODIUM CHLORIDE 0.9% 1,000 ML 100 ML IV ×3 (01:32→19:19)
[2020-09-08 02:00] LABS: Hemoglobin A1C% w Est Avg Glu 6.1 % (4.0-6.0)
[2020-09-08] MEDS: HYDROMORPHONE 0.5 MG INJ IV ×7 (03:03→21:50)
[2020-09-08] MEDS: ONDANSETRON 4 MG/2 ML INJ IV ×3 (06:11→23:43)
--- NOTE | 2020-09-08 09:08 | DI.RAD.S_ITS ---
PROCEDURE: FL SMALL BOWEL FOLLOW THROUGH INDICATIONS: Possible partial small bowel obstruction seen on yesterday's CT. COMPARISON: [facility], CT, CT ANGIO CHEST ABDOMEN PELVIS, 09/07/2020, 20:10. FINDINGS: KUB: Preprocedural supervisor cigar making hand film demonstrates a normal bowel gas pattern. No suspicious abdominal calcifications. Visualized solid organ contours appear normal. No suspicious bony abnormalities. Small bowel: Contrast was instilled via an NG tube. There is normal transit time of barium through the small bowel. Small bowel loops are of normal caliber throughout. Mucosal folds are smooth and of normal thickness. No strictures, intraluminal masses, or extrinsic mass effects are noted. IMPRESSION: Today, the small bowel is unremarkable, with a normal mucosal pattern without obstruction. There is normal transit into the colon. Dictated by: Shiva Mcguire M.D. on 09/08/2020 at 15:45 Approved by: Shiva Mcguire M.D. on 09/08/2020 at 15:47
[2020-09-08 09:09] LABS: Add Manual Diff / Slide Review NO; Basophils Absolute Auto 0 /uL (0-100); Basophils Percent Auto 0.3 % (0-2); Eosinophils Absolute Auto 0 /uL (0-450); Eosinophils Percent Auto 0.2 % (2-4); Hematocrit 40.6 % (41-53); Hemoglobin 13.7 g/dL (13.5-17.5); Lymphocytes Absolute Auto 600 /uL (1100-4500); Lymphocytes Percent Auto 8.3 % (25-40); Mean Corpuscular HGB Conc 33.8 % (30-36); Mean Corpuscular Hemoglobin 31.3 PG (26-34); Mean Corpuscular Volume 92.7 fL (80-100); Monocytes Absolute Auto 500 /uL (0-900); Monocytes Percent Auto 6.9 % (3-14); Neutrophils Absolute Auto 5800 /uL (1500-7000); Neutrophils Percent Auto 84.3 % (50-75); Platelet Count 220 X10^3/uL (150-400); Red Blood Cell Count 4.38 X10^6/uL (4.5-5.9); Red Cell Distribution Width 13.8 % (11.6-14.8); White Blood Cell Count 6.9 X10^3/uL (4.5-11.0)
--- NOTE | 2020-09-08 09:14 | PM.CN ---
History of Present Illness Consult details Date Patient Seen: 09/08/20 Time Patient Seen: 09:14 Chief complaint: Poss UT in Progress Reason for consult: SBO/abdominal pain Narrative: This is a 70 yo man with history of GI bleed due to PUD (takes Prilosec 20mg/day, has taken extra in the last two days bc of symptoms), DM2 (now off medication due to weight loss, hgb A1C 6.1), arthritis with heavy NSAID use 600mg bid for years. He came into the ER last evening with c/o chest pain and pain in his left arm and shoulder. He reports he had been having some epigastric pain symptoms similar to his past bleeding ulcer experience 4-5 years ago for which he had an EGD and cautery of a bleeding ulcer. He reports he was found to have Greenwood's esophagus at that time, but never had a follow up EGD because he moved away from [place], where he was living at the time. On coming into the ER last evening, initially he was thought to have an UT, but troponins were normal. CT scan was performed, revealing a very full stomach and fluid filled esophagus, and some mildly dilated loops of small bowel with no transition point, considered possible PSBO. He denies obstipation. Passed stool prior to admission on Wednesday, and has continued to pass gas since admission. However, he did get an NGT in the ER and felt significant relief once it was placed and 900mL's were drained. He currently feels somewhat better, but c/o ongoing lower and upper abdominal pain. He initially had a WBC of 13.8 in the ER, but now has normalized to 6.9. ROS: Constitutional: Denies chills, Denies fatigue, Denies fever(s), Denies frequent falls, Denies lethargy and Denies weakness Eyes: Denies change in vision, Denies eye discharge, Denies irritation and Denies loss of vision Ears, Nose, Mouth, and Throat: Denies change in voice, Denies dizziness, Denies neck pain, Denies sore throat and Denies throat swelling Cardiovascular: Reports chest pain, Denies irregular heart rhythm, Denies lightheadedness, Denies palpitations, Denies dyspnea, Denies dyspnea on exertion and Denies orthopnea Respiratory: Denies cough, Denies dyspnea, Denies dyspnea on exertion and Denies wheezing Gastrointestinal: Reports abdominal pain, Denies change in bowel habits, Denies diarrhea, Reports nausea in ER and Denies vomiting Musculoskeletal: Denies neck pain and Denies numbness : reports takes flomax for h/o kidney stones; procedures done one year ago to remove stones Skin/Breast: Denies pruritus, Denies erythema, Denies rash and Denies wounds Neurologic: Denies behavioral changes, Denies confusion, Denies dizziness, Denies frequent falls, Denies loss of vision, Denies numbness and Denies weakness Psychiatric: Denies anxiety, Denies behavioral changes, Denies confusion, Denies depression Endocrine: Denies fatigue, Denies flushing and Denies palpitations Hematologic/Lymphatic: Denies easy bruising Allergic/Immunologic: Denies urticaria, Denies throat swelling and Denies wheezing PE: GENERAL: Alert, comfortable appearing. Appears stated age. Answers questions promptly and appropriately. Vital signs noted. HENT: Normocephalic, atraumatic. Hearing intact. NGT in place with bilious drainage present. EYES: Conjunctiva pink, sclera white, no periorbital swelling. CARDIOVASCULAR: Regular rate. No pedal edema. RESPIRATORY: Non-tachypneic, breathing comfortably on room air. GASTROINTESTINAL: Abdomen soft and non-distended; mild TTP in epigastrium and BL lower quadrants GENITALURINARY: No flank tenderness. MUSCULOSKELETAL: Equal tone and mass bilaterally. SKIN: Warm, dry, soft, appropriate color for ethnicity. No other lesions, rashes, or wounds. NEURO: Alert and Oriented X 3. No gross sensory deficits, or cognitive issues. PSYCH: Appropriate affect and mood. Meds Home Medications and Allergies Home Medications Medication Instructions Recorded Confirmed Type ibuprofen 600 mg PO Q8HR 02/02/19 09/08/20 History tramadol 50 mg tablet 50 mg PO Q8H PRN #20 tab 10/25/19 09/08/20 Rx tamsulosin 0.4 mg capsule 0.4 mg PO DAILY #30 cap 01/03/20 09/08/20 Rx carisoprodol [Soma] 50 mg PO BEDTIME 09/08/20 09/08/20 History Allergies Allergy/AdvReac Type Severity Reaction Status Date / Time No Known Drug Allergies Allergy Verified 09/07/20 17:43 Exam Vital Signs (past 8 hours): - 09/08/20 04:02 09/08/20 07:05 09/08/20 07:29 Temperature 98.3 F 97.0 F L Pulse Rate 65 67 Respiratory Rate 16 16 Blood Pressure 127/75 131/78 Pulse Oximetry 98 96 94 Oxygen Delivery Method Room Air Oxygen Flow Rate [address] scan - abdomen: Radiologist's impression: [facility] [place] [address] [id number] Scan ReportSigned Patient: Elian Lopez [facility]#: [id number]: 1950cct:[id number]/Sex: 70 / MDate of Service: 09/07/20Loc: EDAccession Number: [id number] Procedure: CT angio chest abdomen pelvis Ordering Provider: Francisco De Leon D.O. PROCEDURE: CT ANGIO CHEST ABDOMEN PELVIS INDICATIONS: severe chest and abdomen pain TECHNIQUE: Precontrast 5 mm thick sections acquired from the lung apices to the iliac crests. After the administration of intravenous contrast, 2.5 mm thick sections again acquired from the lung apices to the iliac crests. Maximum intensity projection (MIP) oblique sagittal and coronal reformats were then acquired. For radiation dose reduction, the following was used: automated exposure control. COMPARISON: [facility], CT, CT KIDNEY URETER BLADDER (KUB), 08/17/2019, 2:35. [facility], CT, CT KIDNEY URETER BLADDER (KUB), 10/30/2019, 10:28. FINDINGS: Image quality: Excellent. AORTA: The aorta demonstrates no areas of hemodynamically significant stenosis, vascular occlusion, aneurysmal dilation or dissection. Scattered areas of atherosclerotic calcifications are present. CHEST: Lungs and pleura: No acute airspace opacities. No pleural effusions or pneumothorax. Central and peripheral airways are patent and normal in caliber. Scattered calcified are noted. Mediastinum: Heart size is normal. No pericardial effusion. Coronary calcifications are present. No mediastinal or hilar adenopathy by size criteria. Central pulmonary arteries are normal in size. Esophagus is fluid-filled throughout the majority its course. It is noted the visualized portions of the distal esophagus on the 10/30/2019 exam also demonstrated fluid-filled distal esophagus. Small amount of right periesophageal fluid is noted, also unchanged.. No hiatal hernias. Bones and chest wall: No axillary adenopathy by size criteria. Thyroid gland is . No suspicious bony lesions. No vertebral body compression fractures. ABDOMEN: Vasculature: Celiac trunk and mesenteric arteries are patent. Renal arteries are also patent. Solid organs: Liver is normal in size and enhancement. Gallbladder has been removed . Biliary system is non dilated. Pancreas enhances normally. Spleen is normal in size and enhancement. No adrenal nodules. Both kidneys are normal in size and enhancement, without hydronephrosis. Nonobstructing bilateral punctate renal calculi are noted. Peritoneum and bowel: No free fluid or air. There is a mild appearance of relatively diffuse dilated fluid-filled small bowel loops within the mid abdomen extending to the pelvis. Definitive transition point is not clearly identified. Stomach is distended with fluid. Mild scattered colonic diverticular present without inflammatory change. Nodes and vessels: No retroperitoneal or mesenteric adenopathy by size criteria. Inferior vena cava is normal in morphology. Miscellaneous: No ventral hernias. PELVIS: Genitourinary: Bladder wall thickness is normal. Miscellaneous: No inguinal hernias or adenopathy. No ventral hernias. Bones: No suspicious bony lesions. No vertebral body compression fractures. IMPRESSION: 1. Diffuse appearance of dilated fluid-filled small bowel loops as above without definitive transition point most consistent with partial small bowel obstruction. 2. Persistent appearance of fluid-filled esophagus of uncertain etiology. 3. No visualized aortic dissection. Dictated by: Cathryn Lowe M.D. on 09/07/2020 at 21:49 Labs Result Diagrams: 09/07/20 17:50 09/07/20 17:50 Labs: Laboratory Results - last 24 hr 09/07/20 09/07/20 09/07/20 17:50 17:50 17:50 WBC 13.8 H RBC 5.09 Hgb 15.9 Hct 47.3 MCV 92.8 MCH 31.2 MCHC 33.7 RDW 13.5 Plt Count 253 Neut % (Auto) 92.6 H Lymph % (Auto) 3.6 L [place] % (Auto) 3.0 Eos % (Auto) 0.7 L Baso % (Auto) 0.1 Neut # (Auto) 19972 H Lymph # (Auto) 500 L [place] # (Auto) 400 Eos # (Auto) 100 Baso # (Auto) 0 Sodium 144 Potassium 4.2 Chloride 109 H Carbon Dioxide 24 BUN 23 H Creatinine 1.20 Estimated GFR > 60.0 BUN/Creatinine Ratio 19.2 Glucose 140 H Hemoglobin A1c Calcium 9.8 Total Bilirubin 0.5 AST 34 ALT 29 Alkaline Phosphatase 147 H Total Creatine Kinase 62 CK-MB (CK-2) TNP CK-MB (CK-2) Rel Index TNP Troponin I < 0.012 Total Protein 8.9 H Albumin 4.8 Globulin 4.1 Albumin/Globulin Ratio 1.2 Lipase 165 SARS-CoV-2 (PCR) Negative 09/07/20 09/07/20 17:50 21:51 WBC RBC Hgb Hct MCV MCH MCHC RDW Plt Count Neut % (Auto) Lymph % (Auto) [place] % (Auto) Eos % (Auto) Baso % (Auto) Neut # (Auto) Lymph # (Auto) [place] # (Auto) Eos # (Auto) Baso # (Auto) Sodium Potassium Chloride Carbon Dioxide BUN Creatinine Estimated GFR BUN/Creatinine Ratio Glucose Hemoglobin A1c 6.1 H Calcium Total Bilirubin AST ALT Alkaline Phosphatase Total Creatine Kinase CK-MB (CK-2) CK-MB (CK-2) Rel Index Troponin I < 0.012 Total Protein Albumin Globulin Albumin/Globulin Ratio Lipase SARS-CoV-2 (PCR) Assessment & Plan Assessment and plan (1) Abnormal CT of the abdomen: Problem details: This is a 70 yo man with epigastric and lower abdominal pain as well as dilated stomach and mildly dilated small bowel on CT scan. His history of PUD, and ongoing use of NSAIDs daily, as well as the finding of a fluid filled stomach and esophagus on CT scan is concerning for a resurgence of PUD. It will be important to rule out GOO, SBO, and rule out perf/leak from peptic ulcer. We will get an UGI/SBFT today. Depending on those results, we will likely EGD, or possibly laparoscopy (although not likely). Laparoscopy if there is a leak/perf or recalcitrant SBO (unlikely since he is not clinically obstructed, is non-toxic appearing, with normalized WBC today). If UGI/SBFT is normal we will consider going ahead with EGD tomorrow to rule out ulcer, bleed, H pylori, gastritis, and partial GOO. Plan: home meds PRN pain med/antiemetic NPO except for sips of water and ice chips UGI/SBFT through NGT -- ordered and discussed with radio tower technician and nurse Pt added on for EGD tomorrow, pending results of SBFT ok for DVT ppx today, hold it tomorrow 40mg PPI BID Hold metoclopramide until after SBFT Hold NSAIDs Will follow up on SBFT results and remove NGT later today as appropriate This was discussed with the patient, nurse, and hospitalist Dr. Brooks Status: Acute (2) Hx of type 2 diabetes mellitus: Status: Inactive (3) History of peptic ulcer disease: Status: Acute (4) Epigastric pain: Status: Acute (5) Lower abdominal pain: Status: Acute (6) History of Greenwood's esophagus: Status: Acute
[2020-09-08 09:15] LABS: BUN Creatinine Ratio 26.4 (6-22); Blood Urea Nitrogen 24 mg/dL (9-20); Calcium 8.7 mg/dL (8.4-10.2); Carbon Dioxide 27 mmol/L (22-32); Chloride 110 mmol/L (98-107); Estimated Glomerular Filt Rate > 60.0 mL/min (>60); Glucose 117 mg/dL (80-110); HEMOLYSIS 16 (0-50); Potassium 4.2 mmol/L (3.4-5.1); Sodium 142 mmol/L (137-145)
[2020-09-08 09:29] LABS: Magnesium 2.1 mg/dL (1.6-2.3)
[2020-09-08] MEDS: PANTOPRAZOLE 40 MG VIAL IV ×2 (09:51→20:21)
--- NOTE | 2020-09-08 14:33 | PC.NURSE ---
NG tube removed per. Dr. Alcantara. Patient was placed on intermittent suction for 1/2 hour and then NG tube from left nare was removed. Patient will be placed on clears and NPO at 0000 for scope in the AM. Bowel tones in all quadrants are hypoactive. Patient has had many unmeasured BM's this afternoon and patient is passing gas.
--- NOTE | 2020-09-08 16:22 | CM.DANOTE ---
Discharge Planning/Care Management DCP: assessment: case received and discussed in Team Rounds. Pt is a 70 year old male who admitted to care of hospitalist team last night. Consulting: [facility]: Dr. Alcantara. Payer: Medicare [employer] Admission status: INPT: confirmed by UR RN Edilia Went to room to check in with pt and found him receiving care from Dilcia CARMICHAEL. NGT was out, pt on clears and tolerating. Plan for NPO after midnight in prep for a proceduretomorrow with Dr. Alcantara. Dr. Brooks stated pt would likely be able to go home tomorrow is all went well. DCP team to follow prn for any d/c needs that may arise. CM Discharge Assessment Start: 09/08/20 16:21 Freq: Status: Active Protocol: Document 09/08/20 16:21 ITV (Rec: 09/08/20 16:22 ITV [id number]) Discharge Planning Assessment Advance Directives? No History Provided By Medical Record Prior Living Arrangements Mobile home Household Members family,children Review Status In Process
--- NOTE | 2020-09-08 17:23 | PC.NURSE ---
Addendum entered by Rosette Pillai R.N. 09/08/20 21:05: Uneventful evening. WIll be NPO @ [place] for scope in am. IVF infusing into left wrist @ 100cc/hr via pump w/o incidence. HS CBG = 93, no coverage required. Call light w/in h, pt independent to BR Continue w/plan of care. Original Note: Pt resting at intervals. Tolerating clear liquids SpO2 98% RA States abdomen is slightly painful Tele NSR per ICU staff. AC CBG = 99, no coverage required. Call light w/in [facility], pt independent to BR.
[2020-09-08] MEDS: SODIUM CHLORIDE 0.9% FLUSH 10 ML IV (17:59)
[2020-09-09] VITALS (17 sets, daily range): BP systolic 134–185; BP diastolic 69–95; PULSE 50–72; RESP 14–20; TEMP 36.2–37.4; O2SAT 94–98; BMI 27.3
--- NOTE | 2020-09-09 | PATH_ITS ---
[facility] Accession Number: [id number] . 01 Material submitted: . PART A: duodenum - DUODENAL BIOPSY PART B: gastrointestinal site - STOMACH BIOPSY PART C: esophagus - DISTAL ESOPHAGUS . 01 Clinical history: . POSS NC IN PROGRESS . 02 Diagnosis: A. Duodenum, Biopsy: Duodenal mucosa with prominent Nima's glands and crypt hyperplasia. Negative for intraepithelial lymphocytosis. Negative for dysplasia and malignancy. . B. Stomach, Biopsy: Antral and body-type mucosa with mild chronic gastritis. Negative for Helicobacter by immunohistochemistry. Negative for intestinal metaplasia. Negative for dysplasia and malignancy. . C. Distal Esophagus, Biopsy: Squamocolumnar junctional mucosa with specialized intestinal metaplasia, consistent with Greenwood's esophagus. Negative for dysplasia and malignancy. [facility] 09/13/2020 1443 Local . 02 Electronically signed: . Angela Chang MD, Pathologist NPI- [id number] . 01 Gross description: . Part A: DUODENAL BIOPSY: Received in formalin are 3 fragment(s) of loo, soft tissue measuring 0.3 x 0.2 x 0.1 cm to 0.1 x 0.1 x 0.1 cm submitted entirely in 1 cassette(s) Part B: STOMACH BIOPSY: Received in formalin are multiple fragment(s) of loo, soft tissue measuring 1.5 x 0.4 x 0.2 cm in aggregate submitted entirely in 1 cassette(s) Part C: DISTAL ESOPHAGUS: Received in formalin are 2 fragment(s) of loo, soft tissue measuring 0.3 x 0.2 x 0.1 cm to 0.2 x 0.1 x 0.1 cm submitted entirely in 1 cassette(s) /NICHOLAS 09/10/2020 0425 Local . 02 Microscopic: . A. Additional levels were examined. . B. An immunohistochemical stain was performed to evaluate for Helicobacter organisms and is negative. The control stain showed appropriate reactivity. . * This test was developed and its performance characteristics determined by [facility]. It has not been cleared or approved by the U.S. Food and Drug Administration. The FDA has determined that such clearance or approval is not necessary. This test is used for clinical purposes. It should not be regarded as investigational or for research. . 02 Pathologist provided ICD-10: K22.70 . 02 CPT . 827108, 738051, 437262, K13747 Performed at: 01 [facility] Cytology [address] [facility], [place], [place] [id number] MD Isiah Doan MD Phone: [phone] Performed at: 02 [facility] [address] [place] [id number] MD Angela Chang MD Phone: [phone]
[2020-09-09] MEDS: HYDROMORPHONE 0.5 MG INJ IV ×5 (00:10→15:46)
--- NOTE | 2020-09-09 07:12 | PC.NURSE ---
0650 SANTI Alvarez notified patient's pain level still @ 12/22. Last Dilaudid 0.5 mg IVP was admin. @ 0525 documented in the paper MAR. SANTI Alvarez notified & states I will let Dr. Barnes follow up with the pateint. Report given to Milena dorantes RN.
[2020-09-09 07:40] LABS: Appearance Urine UA CLEAR; Bilirubin Urine UA NEGATIVE (NEGATIVE); Color Urine UA YELLOW; Glucose Urine UA TRACE g/dL (Negative); Ketones Urine UA 1+ (NEGATIVE); Leukocyte Esterase Urine UA NEGATIVE (NEGATIVE); Nitrite Urine UA NEGATIVE (Negative); Occult Blood Urine UA 3+ (Negative); Protein Urine UA NEGATIVE (Negative); Specific Gravity Urine UA 1.025 (1.000-1.035); Urobilinogen Urine UA 0.2 E.U./dL (0.2)
[2020-09-09] MEDS: PANTOPRAZOLE 40 MG VIAL IV ×2 (07:53→20:12)
[2020-09-09 08:09] LABS: Bacteria Urine Few (2-10); Culture Indicated Urine Cult Not Indicated; Hyaline Casts Urine 0-1/LPF; RBC Urine 10-30/HPF (0-5/HPF); Squamous Epithelial Cell Urine 1-5 /HPF (0-5/HPF); WBC Urine 0-1/HPF (0-5/HPF)
[2020-09-09] MEDS: SODIUM CHLORIDE 0.9% 1,000 ML 42 ML IV (08:15)
--- NOTE | 2020-09-09 08:26 | PM.PREOP ---
Pre-operative Note COVID-19 COVID-19 status: Negative Result date/Date tested (Pos, Neg/Pending): 09/07/20 Interval Note History & Physical reviewed/Exam performed by Physician: Yes Changes to H&P: Yes H&P completed within 30 days and has changed as indicated here:: Patient complaining of new right flank pain and burning with urination similar to past kidney stone issues. We discussed the purpose, risks, and benefits of EGD and biopsies. Risks of bleeding and perforation were discussed. The patient desires to proceed with EGD. ASA Class (for procedural sedation): II
[2020-09-09] MEDS: LIDOCAINE 4% SOLN 50 ML 20 ML TOP (09:10)
[2020-09-09] MEDS: MIDAZOLAM 5 MG/5 ML VIAL IV (09:15)
[2020-09-09] MEDS: fentaNYL 250 MCG/5 ML INJ IV (09:15)
--- NOTE | 2020-09-09 09:23 | P.OP.ENDO_ITS ---
Operative Date/Time/Diagnoses Date of procedure: 09/09/20 Time of procedure: 09:23 Pre-op diagnosis: History of Greenwood's esophagus, history of peptic ulcer disease, rule out gastric outlet obstruction Post-op diagnosis: other (Greenwood's esophagus, mild gastritis, food debris re tained in stomach, no gastric outlet stenosis) Procedure & Clinicians Study performed: Esophagogastroduodenoscopy procedural sedation performed by the endoscopist biopsies of duodenum, stomach, distal esophagus Same procedure as scheduled: Yes Indications: 70-year-old man with history of Greenwood's esophagus, Peptic ulcer disease, who came into the hospital with a dilated stomach and nausea. EGD is being done today to rule out ulcers, and gastric outlet obstruction or stenosis. Surgeon: Cheli Alcantara Procedure Notes SCOAP/Timeout: performed Procedure in detail: The patient was brought to the room and placed in left lateral decubitus position with all bony prominences padded. A bite block was positioned in the patient's mouth to protect the lips, teeth, and tongue for the procedure. A time-out was performed and then the patient was given procedural sedation starting with 4 mg of Versed and 100 mcg of fentanyl. An additional 1 mg of Versed was given during the procedure. Vitals were monitored throughout the procedure and remained stable. Once adequately sedated, the procedure was begun. The lubricated gastroscope was passed through the bite block and across the tongue and into the esophagus without incident. A tubular view of the esophagus was maintained as the scope was advanced through the esophagus and into the stomach. The scope was advanced through the stomach and to the pylorus. The scope was gently popped through the pylorus and into the duodenal bulb. There was no stenosis or narrowing of the pylorus , duodenal bulb, or gastric outlet. The scope was flexed and advanced into the second and third portions of the duodenum. The duodenum and duodenal bulb appeared normal. Biopsies were taken. The scope was withdrawn into the stomach. The stomach revealed retained food debris, which appeared to be roughage/cellulose/lettuce of some sort. Otherwise the stomach revealed mild endoscopic gastritis. No ulcers were signs of active bleeding were seen. Biopsies were taken. The scope was retroflexed and the gastric cardia was examined. The hiatus appeared basically normal. No significant hiatal hernia was seen. The scope was then straightened, and withdrawn into the esophagus. The Z-line revealed 2-3 cm tongues of salmon-colored mucosa coming up into the distal esophagus, consistent with Greenwood's esophagus. Biopsies were taken. The distal esophagus [appeared otherwise normal. The scope was then withdrawn through the esophagus with a tubular view. The scope was then withdrawn from the patient the procedure was concluded. The patient tolerated the procedure well and was transferred to the PACU in stable condition. Sedation minutes: 14 Findings: Greenwood's esophagus and other findings ( Food debris in the stomach) Specimen(s): other ( biopsies of duodenum, stomach, distal esophagus) Complications: none Impression: Retained food debris in the stomach, consistent with poorly chewed cellulose fiber (roughage/salad). I see no other cause of the patient's dilated stomach. The stomach appears otherwise normal now, with no signs of obstruction or ulcers. The patient does have Greenwood's esophagus. He needs to chew his food better, be on a PPI, and follow up for the Greenwood's, Post-procedure Recommendations: Other recommendation (Recommendations pending biopsy results.) Plan for aftercare: Return to hospital room. Continue PPI. Follow up with [facility] regarding biopsy results. Follow up: as needed Disposition: PACU
--- NOTE | 2020-09-09 09:28 | PC.NURSE ---
Addendum entered by Milena Peter R.N. 09/09/20 10:08: Patient transferred back to unit, patient A/O x 3. Sleepy. VSS, patient remains palmira. Tele on. NS @ 100cc/hr running. SCD's on. Call light in reach. Daughter Priyanka remains beside. Original Note: Patient currently off unit for procedure. Earlier the AM c/o intense abdominal pain, from pelvic region radiating around right flank. BT active, abdomen tender. PRN pain medication administered prior to transfer. Patient has been ambulating independently in the room. Refused SCD's so he could get OOB. Tele removed for transfer to [facility] [place] locked.
--- NOTE | 2020-09-09 09:45 | SUR.PHASEI ---
Stable post op, report called Milena, drinking juice, no complaints.
--- NOTE | 2020-09-09 09:54 | SUR.PHASEI ---
Pt transported back up to room by Lisha CARMICHAEL and Susie TOWNSEND
--- NOTE | 2020-09-09 11:42 | DI.US.S_ITS ---
PROCEDURE: US RENAL COMPLETE INDICATIONS: renal colic symptoms, history of obstruction and stenting. TECHNIQUE: Real-time scanning was performed of the kidneys and bladder, with image documentation. COMPARISON: [facility], CT, CT KIDNEY URETER BLADDER (KUB), 08/17/2019, 2:35. [facility], CT, CT KIDNEY URETER BLADDER (KUB), 10/30/2019, 10:28. FINDINGS: Kidneys: Kidneys are normal in size. Right kidney measures 13.5 cm long; left kidney measures 13.1 cm long. Right renal cortical thickness is 1.7 cm; left renal cortical thickness is 1.3 cm. Renal cortical echotexture is normal. No left-sided hydronephrosis but there is left-sided 4 mm nonobstructive nephrolithiasis. Moderate chronic right-sided hydronephrosis is noted but it appears somewhat more prominent currently when compared to the prior CT scanning from the past 2 years of this patient's evaluation over time.. No suspicious solid mass lesions. Bladder: Pre-void bladder volume is 88 mL. Post-void residual is 29 mL. Pre-void images demonstrate no intraluminal masses or stones. On pre-void images, left but not the right ureteral jets are noted with color Doppler interrogation. (Of note, ureteral jets may not be detectable in up to 25% of cases due to insufficient differences in specific gravity between ureteral and bladder urine). Miscellaneous: No free pelvic fluid. At the right ureteral vesicular margin there likely is a small stone perhaps measuring 6 mm. IMPRESSION: Moderate right-sided hydronephrosis appears somewhat more prominent than seen on recent prior CT scanning. The ultrasound imaging raises concern for presence of a distal right ureteral vesicular calculus. This area is relatively poorly visualized but CT scanning would allow accurate diagnosis of distal right ureteral stone if clinically warranted. Note is made on bladder evaluation that a normal left ureteral jet was seen but not the right ureteral jet. This supports diagnosis of distal right ureteral stone. There appears to be a left-sided 4 mm nonobstructive collecting system calculus. Dictated by: Stanley Skaggs M.D. on 09/09/2020 at 16:17 Approved by: Stanley Skaggs M.D. on 09/09/2020 at 16:26
[2020-09-09] MEDS: MORPHINE 4 MG/ML INJ IV (12:31)
--- NOTE | 2020-09-09 13:33 | DI.CT.S_ITS ---
PROCEDURE: CT KIDNEY URETER BLADDER (KUB) INDICATIONS: hx of nephrolithiasis with colic symptoms, req by urology TECHNIQUE: Axial sections were acquired from the lung bases to the pubic symphysis. Coronal and sagittal reformats were performed. For radiation dose reduction, the following was used: automated exposure control, adjustment of mA and/or kV according to patient size. COMPARISON:[facility], CT, CT ANGIO CHEST ABDOMEN PELVIS, 09/07/2020, 20:10. [facility], CT, CT KIDNEY URETER BLADDER (KUB), 10/30/2019, 10:28. FINDINGS: Image quality: Excellent. Lung bases: Unremarkable. Heart: Normal size. At least moderate coronary artery calcifications. URINARY: Right Kidney: Fcvb-ka-axrdnnhy hydronephrosis and development of perinephric stranding since the prior study. At least 5 tiny stones, which are nonobstructing, the largest of which measures 3 mm. Right Ureter: No stone or hydroureter Left Kidney: Multiple tiny nonobstructing stones. No hydronephrosis. Left Ureter: Unremarkable Bladder: There is a stone in the base of the bladder measuring approximately 4 mm, which likely represents recent passage of the right ureteral stone into the bladder. Prostate is enlarged. ABDOMEN: Liver: Unremarkable. Gallbladder: Surgically absent Biliary ducts: Unremarkable. Pancreas: Unremarkable. Spleen: Unremarkable. Adrenal Glands: Unremarkable. Stomach and Bowel: Moderate sigmoid diverticulosis without evidence of diverticulitis. Peritoneum: No abnormal intraperitoneal fluid. No free air. Ventral Wall: No hernia. Abdominal Nodes: No enlarged retroperitoneal or mesenteric lymph nodes. Vessels: Aorta and inferior vena cava are normal in size. Dense aortic atherosclerotic calcifications. PELVIS: Pelvic Organs: Unremarkable. Pelvic Nodes: Unremarkable. Miscellaneous: No inguinal hernias are seen. Bones: Lumbar degenerative change. Facet arthropathy and degenerative anterolisthesis of L4 on L5 contribute to at least moderate canal stenosis. IMPRESSION: 1. Findings are consistent with recent passage of a 4 mm stone from the distal right ureter into the bladder. There is egci-ce-[id number] right hydronephrosis and extensive perinephric stranding which have occurred since the previous study. 2. Multiple bilateral small nonobstructing stones. 3. Incidental note made of moderate canal stenosis at L4-L5. 4. Sigmoid diverticulosis. 5. Coronary atherosclerosis, aortic atherosclerosis Dictated by: Shiav Mcguire M.D. on 09/09/2020 at 12:57 Approved by: Shiva Mcguire M.D. on 09/09/2020 at 13:04
[2020-09-09 15:02] LABS: Hematocrit 39.6 % (41-53); Hemoglobin 13.2 g/dL (13.5-17.5); Mean Corpuscular HGB Conc 33.4 % (30-36); Mean Corpuscular Volume 92.9 fL (80-100); Platelet Count 211 X10^3/uL (150-400); Red Blood Cell Count 4.26 X10^6/uL (4.5-5.9); Red Cell Distribution Width 13.4 % (11.6-14.8); White Blood Cell Count 9.5 X10^3/uL (4.5-11.0)
[2020-09-09 15:35] LABS: Blood Urea Nitrogen 15 mg/dL (9-20); Calcium 8.8 mg/dL (8.4-10.2); Carbon Dioxide 26 mmol/L (22-32); Chloride 106 mmol/L (98-107); Estimated Glomerular Filt Rate > 60.0 mL/min (>60); Glucose 114 mg/dL (80-110); HEMOLYSIS < 15 (0-50); Potassium 4.1 mmol/L (3.4-5.1); Sodium 139 mmol/L (137-145)
--- NOTE | 2020-09-09 17:19 | PM.PN.1 ---
Subjective Subjective Date Patient Seen: 09/09/20 Time Patient Seen: 15:30 Interval history: Patient this morning complained of right lower quadrant pain that felt prior to his previous kidney stones Prior to endoscopy with surgery. He had a bunch of undigested food in his stomach but no gastric outlet obstruction. he had no nausea or vomiting this morning. further imaging revealed a passed kidney stone in the bladder. He had a recent urological stent placed and did discuss the case with his urologist Dr. Will whom will see the patient tomorrow AM. Exam Vital Signs (past 8 hours): - 09/09/20 09:25 09/09/20 09:30 09/09/20 09:35 Temperature 98.7 F Pulse Rate 61 58 L 59 L Respiratory Rate 17 20 18 Blood Pressure 153/87 H 145/73 H 148/69 H Pulse Oximetry 95 95 94 09/09/20 09:40 09/09/20 09:49 09/09/20 10:00 Temperature 98.1 F 97.7 F Pulse Rate 71 72 53 L Respiratory Rate 17 14 16 Blood Pressure 156/78 H 153/74 H 152/90 H Pulse Oximetry 97 96 98 09/09/20 10:30 09/09/20 11:00 09/09/20 12:00 Temperature 98.4 F 98.4 F 97.9 F Pulse Rate 54 L 50 L 52 L Respiratory Rate 14 16 16 Blood Pressure 157/95 H 160/83 H 171/89 H Pulse Oximetry 95 96 95 09/09/20 13:05 Temperature 98.0 F Pulse Rate 58 L Respiratory Rate 15 Blood Pressure 155/87 H Pulse Oximetry 97 Oxygen Delivery Method Room Air Oxygen Flow Rate 0 Narrative Exam Narrative: Gen: Alert, oriented, well-developed 70 y.o. male, appears mildly uncomfortable HEENT: normocephalic, atraumatic, conjunctiva clear, sclera non-icteric, NG tube in place, oral mucosa pink and moist Neck: supple, full ROM, no JVD, trachea is midline Resp: Lungs CTA, non-labored breathing CV: RRR, no murmur or rubs Abd: soft, RLQ severe tenderness, no rebound. Skin: healed surgical scar on left knee, no lesions or rashes, dry and intact Neuro: Alert and oriented X 4 w/no focal deficits. Speech clear and coherent. Extremities: moves all 4 extremities, is ambulatory, negative Yordy?s sign Psyche: normal mood and affect. Objective Labs Result Diagrams: 09/09/20 14:57 09/09/20 14:57 Labs: Laboratory Results - last 24 hr 09/09/20 09/09/20 09/09/20 06:48 14:57 14:57 WBC 9.5 RBC 4.26 L Hgb 13.2 L Hct 39.6 L MCV 92.9 MCH 31.0 MCHC 33.4 RDW 13.4 Plt Count 211 Sodium 139 Potassium 4.1 Chloride 106 Carbon Dioxide 26 BUN 15 Creatinine 1.00 Estimated GFR > 60.0 BUN/Creatinine Ratio 15.0 Glucose 114 H Calcium 8.8 Urine Color Yellow Urine Appearance Clear Urine pH 5.0 Ur Specific [place] 1.025 Urine Protein Negative Urine Glucose (UA) Trace H Urine Ketones 1+ H Urine Occult Blood 3+ H Urine Nitrate Negative Urine Bilirubin Negative Urine Urobilinogen 0.2 Ur Leukocyte Esterase Negative Urine RBC 10-30/hpf H Urine WBC 0-1/hpf Ur Squamous Epith Cells 1-5 /hpf Urine Bacteria Few (2-10) H Hyaline Casts 0-1/lpf Ur Culture Indicated? Cult not indicated PFSH Medical History (Updated 09/08/20 @ 09:56 by Cheli Alcantara MD) Acid reflux Arthritis Barretts esophagus Chronic back pain Diabetes mellitus, type II Diverticulitis Enlarged prostate Hearing loss History of bleeding ulcers Hx of type 2 diabetes mellitus Kidney stones (08/17/19) Renal cyst, right Skin cancer Surgical History History of arthroplasty of left knee History of cataract surgery Hx of cholecystectomy Hx of cystoscopy (08/18/19) S/P right inguinal herniorrhaphy Family History Father History of open heart surgery Mother Breast cancer Social History household members: family and children Smoking Status: Former smoker alcohol intake: current Assessment & Plan Assessment & Plan narrative: Elian Don is a 70-year-old male with a past medical history of controlled type 2 diabetes, BPH, fairly recent nephrolithiasis who was admitted with concerns of a partial small-bowel obstruction, course complicated by likely recurrent nephrolithiasis today. 1. Partial small bowel obstruction, acute and present on admission Likely due to history of prior laproscopic abdominal surgery and current medications which can slow peristolsis, no evidence of obstruction. Symptoms improved with NG tube. Findings on EGD with probable gastroparesis but will need gastric emptying study as an outpatient if he can tolerate a diet. Dr. Alcantara consulting and will follow Pain control w/low dose IV dilaudid, use judiciously Fever control w/tylenol diet advanced per surgery 2. History of diabetes type 2, currently w/an elevated glucose A1c added on is 6.1, classifying as prediabetic 3. Nephrolithiasis And renal colic - today the patient developed acute right lower quadrant abdominal pain, imaging shows mild right proximal hydronephrosis and a recently passed 4 mm stone into the bladder. Given his recent urological procedures case was discussed with his urologist Dr. Crespo. Dr. Crespo recommends that we strain the urine for now but does not need any urological interventions for the time being, but plans to see the patient in the morning. - restarted flomax. VTE prophylaxis: Wells risk score: 0 Bilateral SCDs Consults: Dr. Cheli Alcantara, General Surgery consult and involvement is appreciated. Dr. Will, urology. Dispo: Probable discharge to home, hopefully tomorrow if tolerating a diet and renal colic improved. Code Status: Full code as discussed with patient. Hope O'bella, daughter and surrogate/POA Quality VTE Deep Vein Thrombosis/Pulmonary Embolism Present on Admission: No
[2020-09-09] MEDS: SODIUM CHLORIDE 0.9% 1,000 ML 100 ML IV (18:24)
--- NOTE | 2020-09-09 18:52 | PC.NURSE ---
Addendum entered by Rosette Pillai R.N. 09/09/20 22:28: Pt continues w/discomfort across abdomen. Med w/ dilaudid w/good relief. IVF continue as per orders. Call light w/in reach, pt independent to BR Continue w/plan of care. Original Note: Pt watching TV. SpO2 99% RA C/O of discomfort across abdomen Med at 1600 w/ fair relief. IVF LR infusing @ 100cc/hr via pump into left wrist w/o incidence. Call light w/in reach, pt independent to BR
[2020-09-09] MEDS: HYDROMORPHONE 0.5 MG INJ 1 MG IV ×2 (20:01→22:37)
[2020-09-09] MEDS: SODIUM CHLORIDE 0.9% FLUSH 10 ML IV (20:01)
[2020-09-10 00:49] VITALS: BP 151/91; PULSE 53; RESP 16; TEMP 37; O2SAT 96
[2020-09-10] MEDS: HYDROMORPHONE 0.5 MG INJ 1 MG IV (01:07)
[2020-09-10] MEDS: HYDROMORPHONE 1 MG INJ IV ×3 (03:37→08:39)
[2020-09-10] MEDS: SODIUM CHLORIDE 0.9% 1,000 ML 100 ML IV (04:28)
[2020-09-10 04:48] VITALS: BP 145/84; PULSE 51; RESP 16; TEMP 36.4; O2SAT 96
[2020-09-10] MEDS: PANTOPRAZOLE 40 MG VIAL IV (08:39)
[2020-09-10] MEDS: TAMSULOSIN 0.4 MG CAPSULE PO (08:39)
[2020-09-10] MEDS: SODIUM CHLORIDE 0.9% FLUSH 10 ML IV (08:42)
[2020-09-10 08:57] VITALS: BP 140/85; PULSE 54; RESP 16; TEMP 36.6; O2SAT 96
--- NOTE | 2020-09-10 09:49 | P.DS_ITS ---
History of Present Illness History of Present Illness Date Patient Seen: 09/10/20 Time Patient Seen: 08:15 Chief complaint: Poss [place] in Progress Narrative: Per SANTI Benoit: Elian Mathews 70-year-old male, former smoker with history of BPH, chronic osteoarthritis treated with carisprodol, tramadol and ibuprofen presented to the ED with a complaint of 2 days of multiple symptoms including chest pain which is sometimes sharp and stabbing and other times pressure-like that seems to radiate into his left arm. He felt sweaty and hot, palpitatons, and dizzy prior to the onset of chest pain. He states that he was sleeping when he woke up with left arm pain and noticed he was also having pain in his chest.He denies recent travel. He is not dizzy nor weak or lightheaded. He admits to significant lower abdominal and pelvic pain with nausea without vomiting. He had a reduced bowel movement the day he presented to the ED. In the ED, they eulogio troponins and evaluated his EKG and ruled out a cardiac cause. Due to the persistent epigastric pain concerning for a dissection, they did a CTA of the chest abdomen and pelvis with findings of dilated fluid-filled small bowel loops as above without definitive transition point most consistent with partial small bowel obstruction, 2. Persistent appearance of fluid-filled esophagus of uncertain etiology, ruling out no visualized aortic dissection. Patient's vital signs are all within normal limits, WBC is 13.8 with a left shift of 12,700 neutrophils, glucose was 140, alk-phos was 147, and COVID-19 PCR is negative. In the ED, he was administered IV dilaudid for pain and placed an NG tube. Discharge Providers Provider Date of admission: 09/07/20 23:40 Discharge Date: 09/10/20 Primary care physician: Milton Rios MD Consults: 09/09/20 08:14 Consult to Respiratory Therapy Evaluate & Treat Comment: Physician Instructions: Evaluate and treat Discharge provider: Lenin Barnes DO Summary Hospital Course Discharge Diagnosis: 1. Partial small bowel obstruction, acute and present on admission 2. History of diabetes type 2, currently w/an elevated glucose 3. Nephrolithiasis And renal colic 4. Probable gastroparesis. Hospital Course: Elian Don is a 70-year-old male with a past medical history of controlled type 2 diabetes, BPH, fairly recent nephrolithiasis who was admitted with concerns of a partial small-bowel obstruction and abdominal distension. He improved with placement of an NG tube, he underwent a small-bow el follow-through which was unremarkable followed by an EGD which showed a great amount of undigested food consistent with gastroparesis but no evidence of a gastric outlet obstruction. Biopsies were taken and the patient should follow up [facility] an outpatient for results, either in person or by phone. He was started on a diet and was tolerating oral intake on the day of discharge. He was recommend to initiate small frequent meals for gastroparesis and follow- up with his primary care provider for an outpatient gastric emptying study. His course was complicated by an episode of nephrolithiasis and renal colic. He was seen by his urologist, Dr. Crespo on the day of discharge who recommended continued urinary straining and continued Flomax and follow up with the outpatient urology clinic. Time Spent with Patient Time spent: Greater than 30 minutes Exam Vital Signs (past 8 hours): - 09/10/20 04:48 09/10/20 08:57 Temperature 97.5 F L 97.9 F Pulse Rate 51 L 54 L Respiratory Rate 16 16 Blood Pressure 145/84 H 140/85 Pulse Oximetry 96 96 Oxygen Delivery Method Room Air Oxygen Flow Rate 0 Narrative Exam Narrative: Gen: Alert, oriented, well-developed 70 y.o. male, appears mildly uncomfortable HEENT: normocephalic, atraumatic, conjunctiva clear, sclera non-icteric, NG tube in place, oral mucosa pink and moist Neck: supple, full ROM, no JVD, trachea is midline Resp: Lungs CTA, non-labored breathing CV: RRR, no murmur or rubs Abd: soft, mild epigastric tenderness, no rebound. Skin: healed surgical scar on left knee, no lesions or rashes, dry and intact Neuro: Alert and oriented X 4 w/no focal deficits. Speech clear and coherent. Extremities: no edema or joint effusions. Psyche: normal mood and affect. Objective Labs Result Diagrams: 09/09/20 14:57 09/09/20 14:57 Labs: Laboratory Results - last 24 hr 09/09/20 09/09/20 14:57 14:57 WBC 9.5 RBC 4.26 L Hgb 13.2 L Hct 39.6 L MCV 92.9 MCH 31.0 MCHC 33.4 RDW 13.4 Plt Count 211 Sodium 139 Potassium 4.1 Chloride 106 Carbon Dioxide 26 BUN 15 Creatinine 1.00 Estimated GFR > 60.0 BUN/Creatinine Ratio 15.0 Glucose 114 H Calcium 8.8 PFSH Medical History Acid reflux Arthritis Barretts esophagus Chronic back pain Diabetes mellitus, type II Diverticulitis Enlarged prostate Hearing loss History of bleeding ulcers Hx of type 2 diabetes mellitus Kidney stones (08/17/19) Renal cyst, right Skin cancer Surgical History History of arthroplasty of left knee History of cataract surgery Hx of cholecystectomy Hx of cystoscopy (08/18/19) S/P right inguinal herniorrhaphy Family History Father History of open heart surgery Mother Breast cancer Social History household members: family and children Smoking Status: Former smoker alcohol intake: current Discharge Plan Discharge Plan Patient Disposition: Home Provider Discharge Comment: You were admitted to the hospital with what was read on your imaging as a partial small bowel obstruction. You had an EGD which was unremarkable and your distension may be from gastroparesis. You should call [facility] next week for results from your EGD biopsy, either can be given over the phone or you'll need to schedule a visit with them in person for in person results. For now continue with small frequent meals to limit distension (see handout). You should have a gastric emptying study with your PCP ideally, we do not want to start medications prior to this study as it can affect the results. You also had another kidney stone which passed, you were seen by dr. will. Continue to strain your urine and if stone does not pass you should follow up with Dr. Will for possible removal in the clinic. Discharge orders & Medications Prescriptions: New hydromorphone [Dilaudid] 2 mg tablet 2 mg PO Q6H PRN (Reason: pain) 7 Days Qty: 10 RF: 0 Continued tramadol 50 mg tablet 50 mg PO Q8H PRN (Reason: pain) Qty: 20 RF: 0 tamsulosin [Flomax] 0.4 mg capsule 0.4 mg PO DAILY Qty: 30 RF: 3 carisoprodol [Soma] 250 mg Tablet 50 mg PO BEDTIME RF: 0 Discontinued ibuprofen 200 mg Capsule 600 mg PO Q8HR RF: 0 Follow up/Referrals: Maynor Hagen MD [Physician] - (Call [facility] to schedule follow up for biopsy results.) Milton Rios MD [Primary Care Provider] - Diet/Activity/Treatments Diet: Diet as Tolerated Diet comment: Small frequent meals for gastroparesis. Activity: As tolerated Visit Report/Discharge Packet Instructions: DI for Gastroparesis, Gastroparesis Discharge Data Primary Care Provider: Milton Rios Quality VTE Deep Vein Thrombosis/Pulmonary Embolism Present on Admission: No MIPS - Admit I confirm the patient?s Advance Care Plan is present, Code status is documented, Surrogate decision maker is in patient?s record [If Yes, STOP here]: Yes MIPS - DC The patient has current or prior documentation of left ventricular ejection fraction (LVEF) less than 40%, or moderate or severely depressed left ventricular systolic function.: No
--- NOTE | 2020-09-10 10:51 | PC.NURSE ---
Addendum entered by Cordell Ascencio R.N. 09/10/20 10:53: Dilaudid prescriptions e-sent to [facility] pharmacy. Original Note: Patient educated about diet, new medications, follow up with [facility] and Dr. Crespo if needed. He was also educated about ss of worsening and follow up. Patient left facility via wheelchair with daughter to private vehicle. Patient and daughter verbalized understanding to all discharge instructions. Patient educated about s/s of stroke. Patient left facility with all belongings.
--- NOTE | 2020-09-10 17:24 | PM.CN ---
History of Present Illness Consult details Date Patient Seen: 09/10/20 Time Patient Seen: 07:00 Chief complaint: Poss [place] in Progress Reason for consult: Severe right lower quadrant pain Requesting provider: Lenin Barnes Narrative: Patient is a 70-year-old white male known to me previously for urolithiasis. He is admitted on 09/07/2020 for further evaluation of chest pain, epigastric pain, and left upper extremity pain. Troponin levels an EKG rule out a cardiac etiology. Because of persisting symptoms CT angiogram of the chest abdomen was performed at that time. No hydronephrosis was noted. There were multiple, small, nonobstructing renal calculi noted no evidence of ureteral or bladder calculus. Indicators for general surgery consultation led to upper gastrointestinal studies and EGD with biopsy. Findings were consistent with Greenwood's esophagus. Final pathology of biopsies taken are pending. 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 consult was requested. I recommended CT KUB performed. It demonstrated interval development of moderate right hydronephrosis and a 4 mm calculus residing in the base the bladder, consistent with recent passage of a calculus. He has a history of upper track urolithiasis in 1994 requiring a stent placement and subsequent ESWL. I evaluated and treated with laser lithotripsy a 6 x 8 mm obstructing proximal and mid left ureteral calculus on 09/01/2019. Subsequent Litholink demonstrated a suboptimal urine output of 1.93 L per 24 hours and moderate hypercalciuria in the setting of elevated urinary excretion of sodium. Unfortunately, the patient did not return for follow-up discussion in preventive planning for future stone development. At the time of laser lithotripsy the left ureteral calculus and a least 3 left intrarenal calculi were treated with laser lithotripsy, rendering him stone free on the left. Each therefore, updated imaging now indicates interval continued risk for ongoing stone formation. Meds Home Medications and Allergies Home Medications Medication Instructions Recorded Confirmed Type tramadol 50 mg tablet 50 mg PO Q8H PRN #20 tab 10/25/19 09/08/20 Rx tamsulosin 0.4 mg capsule (Flomax) 0.4 mg PO DAILY #30 cap 01/03/20 09/08/20 Rx carisoprodol 250 mg tablet (Soma) 50 mg PO BEDTIME 09/08/20 09/08/20 History hydromorphone 2 mg tablet 2 mg PO Q6H PRN 7 Days #10 tab 09/10/20 Rx (Dilaudid) Allergies Allergy/AdvReac Type Severity Reaction Status Date / Time No Known Drug Allergies Allergy Verified 09/07/20 17:43 Exam Vital Signs (past 8 hours): Oxygen Delivery Method Room Air Oxygen Flow Rate 0 Narrative Exam Narrative: He is a well-developed and well-nourished gentleman in no particular current distress. He was using the restroom when I came to the room and he was able to ambulate without apparent difficulty with the IV pole in and out of the restroom. More in-depth examination was not repeated given the extensive evaluations in examinations performed by providers during this hospitalization. Objective Labs Result Diagrams: 09/09/20 14:57 09/09/20 14:57 Assessment & Plan Assessment & Plan narrative: Assessment: 1. Recent passage of a 4 mm right ureteral calculus. 2. Bilateral, nonobstructing, small renal calculi. Plan: 1. Recommend outpatient follow-up in the Urology Clinic with repeat Litholink, PSA, and PVR. 2. Continue to strain urine and submit recovered stone for crystallographic analysis. If unsuccessful in passing, then consider endoscopic stone extraction.
== END 2020-09-10 11:01 | disposition home or self-care (01) | DRG 389 ==
LOC: ED 18:52 → AC 23:41
PROVIDERS: Emergency Medicine; Internal Medicine; Surgery; Admitting Provider Nurse Practitioner Family; Emergency Provider Emergency Medicine; PCP Internal Medicine; Referring Provider Emergency Medicine; Visit Provider Nurse Practitioner Family
PROC: 0DJ08ZZ Inspection of Upper Intestinal Tract, Via Natural or Artificial Opening Endoscopic (ICD-10-PCS; CPT 43235; principal; 2020-09-09 08:30)
DX: K56.600 Partial intestinal obstruction, unspecified as to cause (principal); N13.30 Unspecified hydronephrosis; K22.70 Barrett's esophagus without dysplasia; N20.0 Calculus of kidney; E11.43 Type 2 diabetes mellitus with diabetic autonomic (poly)neuropathy; K31.84 Gastroparesis; N21.0 Calculus in bladder; M19.90 Unspecified osteoarthritis, unspecified site; Z79.1 Long term (current) use of non-steroidal anti-inflammatories (NSAID); Z87.891 Personal history of nicotine dependence; Z20.822 Contact with and (suspected) exposure to COVID-19
CPT/HCPCS: 36415; 71045; 71275; 74174; 74176; 74250; 76770; 80048; 80053; 81001; 82550; 82962; 83036; 83690; 83735; 84484; 85025; 85027; 87086; 87635; 93005; 93010; 94762; 96374; 96375; 96376; 99285; C9803; C9113; J1170; J1885; J2250; J2270; J2405; J2765; J3010

== ENCOUNTER → 2020-11-04 10:41 | Outpatient (CLI) | payer MEDICARE, SELFPAY ==
[2020-10-08 12:32] VITALS: BMI 27.3
[2020-11-04 13:48] LABS: Prostate Specific Antigen 2.18 ng/mL (0.10-4.00)
== END ==
PROVIDERS: PCP Internal Medicine; Referring Provider Specialist; Visit Provider Specialist
DX: N20.1 Calculus of ureter (principal); R93.5 Abnormal findings on diagnostic imaging of other abdominal regions, including retroperitoneum; R10.30 Lower abdominal pain, unspecified
CPT/HCPCS: 36415; 84153

== ENCOUNTER → 2020-11-05 09:40 | Outpatient (CLI) | payer MEDICARE, SELFPAY ==
[2020-10-08 12:32] VITALS: BMI 27.3
--- NOTE | 2020-11-05 09:41 | DI.CT.S_ITS ---
PROCEDURE: CT KIDNEY URETER BLADDER (KUB) INDICATIONS: ureteral calculus TECHNIQUE: Axial sections were acquired from the lung bases to the pubic symphysis. Coronal and sagittal reformats were performed. For radiation dose reduction, the following was used: automated exposure control, adjustment of mA and/or kV according to patient size. COMPARISON: [facility], CT, CT KIDNEY URETER BLADDER (KUB), 09/09/2020, 13:48. FINDINGS: Lower thorax: The lung bases are clear. Heart size normal. No hiatal hernia. Liver: Normal in size and attenuation. No contour deformity present. Biliary system: Cholecystectomy. No intra or extrahepatic bile duct dilation. Pancreas: Unremarkable without mass or inflammation evident. Spleen: Normal in size and density. Adrenals: Normal morphology and density. Reproductive system: Prostate is enlarged, and elevates the bladder floor. Urinary system: Bilateral small nonobstructive calculi all measure less than 4 mm, stable from the prior. No hydronephrosis or solid mass lesion. 2.3 cm right renal cortical cyst remains unchanged. Gastrointestinal system: The bowel appears unremarkable with no evidence of bowel obstruction or inflammation. The stomach appears unremarkable. Multiple diverticula arise from the sigmoid colon without evidence of diverticulitis. Appendix: No findings to suggest acute appendicitis. Peritoneal spaces: No mesenteric or retroperitoneal adenopathy. No free air. No free fluid. Vasculature: Aortic atherosclerotic vascular calcification noted without evidence of aneurysm. Musculoskeletal: Normal bone mineralization. Degenerative disc disease and arthropathy noted in lower lumbar spine resulting in grade 1 anterior spondylolisthesis and moderate to severe central stenosis at L4-5. No acute fractures. Right inguinal hernia repair with herniorrhaphy remains unchanged. No recurrent or residual hernia. IMPRESSION: 1. Stable nonobstructive bilateral renal calculi all measure less than 4 mm. No hydronephrosis or obstructive uropathy. 2. Incidental stable findings include prostatic hypertrophy, right renal cyst, cholecystectomy, diverticulosis without diverticulitis, degenerative disc disease Approved by: Kimani Arroyo M.D. on 11/05/2020 at 10:00
== END ==
PROVIDERS: PCP Internal Medicine; Referring Provider Specialist; Visit Provider Specialist
DX: N40.0 Benign prostatic hyperplasia without lower urinary tract symptoms (principal); N20.1 Calculus of ureter; N20.0 Calculus of kidney; K57.30 Diverticulosis of large intestine without perforation or abscess without bleeding; N28.1 Cyst of kidney, acquired; M51.36 Other intervertebral disc degeneration, lumbar region; Z90.49 Acquired absence of other specified parts of digestive tract
CPT/HCPCS: 74176

== ENCOUNTER → 2020-11-21 10:37 | Outpatient (CLI) | payer MEDICARE, SELFPAY ==
[2020-11-21 09:40] VITALS: BMI 27.3
[2020-11-27 12:10] LABS: Ca oxalate dihydrate 30 % (.); Ca oxalate monohydr 70 % (.)
== END ==
PROVIDERS: PCP Internal Medicine; Visit Provider Specialist
DX: N20.0 Calculus of kidney (principal); N40.1 Benign prostatic hyperplasia with lower urinary tract symptoms; N13.8 Other obstructive and reflux uropathy
CPT/HCPCS: 51798; 82365; 99215

== ENCOUNTER → 2021-07-14 11:34 | Outpatient (CLI) | payer MEDICARE, SELFPAY ==
[2021-01-21 09:20] VITALS: BMI 27.3
[2021-07-14 13:49] LABS: Prostate Specific Antigen 2.39 ng/mL (0.10-4.00)
== END ==
PROVIDERS: PCP Internal Medicine; Referring Provider Specialist; Visit Provider Specialist
DX: R97.20 Elevated prostate specific antigen [PSA] (principal)
CPT/HCPCS: 36415; 84153

== ENCOUNTER → 2023-03-12 11:17 | Outpatient (CLI) | payer MEDICARE, SELFPAY ==
[2021-01-21 09:20] VITALS: BMI 27.3
--- NOTE | 2023-03-12 | DI.RAD.S_ITS ---
PROCEDURE: XR CERVICAL SPINE 2V OR 3V INDICATIONS: BACK PAIN TECHNIQUE: 3 view(s) of the cervical spine were acquired. COMPARISON: None. FINDINGS: Bones: No fractures or dislocations to the T1 level. The lateral masses of C1 appear intact on the odontoid view. No suspicious bony lesions. Hypertrophic facet joints noted throughout the exam. C6-7 and C7-T1 disc space is not well seen Soft tissues: No prevertebral soft tissue swelling. IMPRESSION: No evidence of fracture or traumatic malalignment. Lower cervical spine disc spaces not well assessed Approved by: Kimani Arroyo M.D. on 03/12/2023 at 12:03
--- NOTE | 2023-03-12 | DI.RAD.S_ITS ---
PROCEDURE: XR THORACIC SPINE 2V INDICATIONS: BACK PAIN TECHNIQUE: 3 views of the thoracic spine were acquired. COMPARISON: None. FINDINGS: Bones: No fractures or dislocations. No suspicious bony lesions. 12 pairs of ribs are noted, and appear intact where visualized. Small anterior osteophytes and mid thoracic spine disc space narrowing Soft tissues: No paravertebral stripe thickening. IMPRESSION: Mild degenerative changes without fracture or malalignment Approved by: Kimani Arroyo M.D. on 03/12/2023 at 12:00
--- NOTE | 2023-03-12 | DI.RAD.S_ITS ---
PROCEDURE: XR LUMBAR SPINE 2-3V INDICATIONS: BACK PAIN TECHNIQUE: 3 views of the lumbar spine were acquired. COMPARISON: None. FINDINGS: Bones: 5 [id number] vertebrae are present. Lower lumbar spine disc space narrowing hypertrophic facet joints associated with grade 1 anterior spondylolisthesis L4-5 No vertebral body compression fractures. No suspicious bony lesions. Soft tissues: Overlying bowel gas pattern is normal. No suspicious soft tissue calcifications. Atherosclerotic calcification in the abdominal aorta noted without evidence of aneurysm. IMPRESSION: Degenerative disc disease, arthropathy and grade 1 anterior spondylolisthesis L4-5 Approved by: Kimani Arroyo M.D. on 03/12/2023 at 11:57
== END ==
LOC: RAD 11:19
PROVIDERS: PCP Physician Assistant; Referring Provider Physician Assistant; Visit Provider Physician Assistant
DX: M47.26 Other spondylosis with radiculopathy, lumbar region (principal); M51.16 Intervertebral disc disorders with radiculopathy, lumbar region; M43.16 Spondylolisthesis, lumbar region; M47.812 Spondylosis without myelopathy or radiculopathy, cervical region; M47.814 Spondylosis without myelopathy or radiculopathy, thoracic region; M54.2 Cervicalgia; M54.9 Dorsalgia, unspecified; G89.29 Other chronic pain
CPT/HCPCS: 72040; 72070; 72100

== ENCOUNTER → 2024-06-26 09:37 | Outpatient (CLI) | payer MEDICARE, SELFPAY ==
[2021-01-21 09:20] VITALS: BMI 27.3
--- NOTE | 2024-06-26 09:40 | DI.CT.S_ITS ---
PROCEDURE: CT ABDOMEN PELVIS WO CON INDICATIONS: Calculus of kidney TECHNIQUE: Axial sections were acquired from the lung bases to the pubic symphysis. Coronal and sagittal reformats were performed. For radiation dose reduction, the following was used: automated exposure control, adjustment of mA and/or kV according to patient size. COMPARISON: None. FINDINGS: Image quality: Diagnostic. Lower Chest: No significant findings. URINARY: Right Kidney: Multiple nonobstructing stones are noted scattered in right kidney measures up to 5 mm in size and 1052 Hounsfield unit in density. No obstructing stones or hydronephrosis. Simple appearing right upper pole renal cyst is noted measures 2.5 x 2.5 cm in size. Right Ureter: No hydroureter. Left Kidney: Nonobstructing stones are seen in left kidney measures up to 4 mm in size in mid to lower pole left kidney. No obstructing renal stones or hydronephrosis. Left Ureter: No hydroureter. Bladder: Mild diffuse bladder wall thickening. No discrete bladder wall mass. No calcified stones. ABDOMEN: Liver: No contour-deforming solid mass. Gallbladder: Gallbladder is surgically absent. Biliary ducts: No biliary dilation. Pancreas: No ductal dilation. Spleen: Size is within normal limits. Adrenal Glands: No adrenal nodules. Stomach and Bowel: Normal colonic caliber, without significant wall thickening. Moderate fecal stasis throughout the colon is seen. Appendix is visualized in right lower quadrant and is within normal limits. Sigmoid diverticulosis without CT evidence of acute diverticulitis. No abscess collection. Peritoneum: No abnormal intraperitoneal fluid. No free air. Ventral Wall: No hernia. Abdominal Nodes: No enlarged retroperitoneal or mesenteric lymph nodes. Vessels: Aorta and inferior vena cava are normal in size. PELVIS: Pelvic Organs: Markedly enlarged prostate gland with significant mass effect on floor of urinary bladder.. Pelvic Nodes: Unremarkable. Miscellaneous: No inguinal hernias are seen. Bones: No aggressive appearing bony lesions. No acute vertebral body compression fractures. IMPRESSION: 1. Bilateral nonobstructing renal calculi as described above. Simple appearing right renal cyst. No obstructing renal stones or hydronephrosis. No hydroureter. 2. Enlarged prostate gland with significant mass effect on floor of urinary bladder. Mild bladder wall thickening without discrete bladder wall mass. Finding may indicate chronic urinary outlet obstruction. 3. Moderate constipation. No bowel obstruction or abnormal bowel wall thickening. Normal appendix. Sigmoid diverticulosis without CT evidence of acute diverticulitis. No free fluid or free air. Dictated by: Filipe Dave M.D. on 06/26/2024 at 13:12 Approved by: Filipe Dave M.D. on 06/26/2024 at 14:52
== END ==
PROVIDERS: PCP Physician Assistant; Referring Provider Urology; Visit Provider Urology
DX: N20.0 Calculus of kidney (principal); N40.1 Benign prostatic hyperplasia with lower urinary tract symptoms; N13.8 Other obstructive and reflux uropathy; N28.1 Cyst of kidney, acquired; K59.00 Constipation, unspecified; K57.30 Diverticulosis of large intestine without perforation or abscess without bleeding; Z90.49 Acquired absence of other specified parts of digestive tract
CPT/HCPCS: 36415; 74176; 84153

== ENCOUNTER → 2024-07-07 16:11 | Outpatient (CLI) | payer MEDICARE, SELFPAY ==
[2021-01-21 09:20] VITALS: BMI 27.3
--- NOTE | 2024-07-07 16:12 | DI.RAD.S_ITS ---
PROCEDURE: XR KUB INDICATIONS: Evaluate and document kidney stones TECHNIQUE: One view of the abdomen acquired. COMPARISON: [facility], CT, CT ABDOMEN PELVIS WO CON, 06/26/2024, 9:56. [facility], CR, XR KUB, 08/18/2019, 18:29. FINDINGS: Surgical changes and devices: Surgical clips in the right upper quadrant from prior cholecystectomy. Surgical tacks noted in the lower pelvis from likely hernia mesh repair. Bowel: Bowel gas pattern is nonobstructive. Soft tissues: A few punctate densities project over the right renal shadow measuring between 4 and 5 mm in size, possibly correlating with previously seen right-sided renal stones. A few punctate densities project over the left renal shadow measuring between 4 and 5 mm in size also correlating with renal stone seen on comparison CT. Overall number difficult to quantify secondary to adjacent dense fecal material No suspicious abdominal calcifications. Visualized solid organ contours appear normal in size. Bones: No suspicious bony lesions. IMPRESSION: Bilateral punctate densities projecting over the renal shadows measuring between 4 and 5 mm in size. These likely correlate with previously seen renal stones on comparison CT. Dictated by: Adonay Yarbrough M.D. on 07/08/2024 at 0:01 Approved by: Adonay Yarbrough M.D. on 07/08/2024 at 0:06
== END ==
PROVIDERS: PCP Physician Assistant; Referring Provider Urology; Visit Provider Urology
DX: N20.0 Calculus of kidney (principal); N40.1 Benign prostatic hyperplasia with lower urinary tract symptoms; N13.8 Other obstructive and reflux uropathy; N48.6 Induration penis plastica; Z87.442 Personal history of urinary calculi; Z90.49 Acquired absence of other specified parts of digestive tract
CPT/HCPCS: 51798; 74018; 81002; 99214

== ENCOUNTER → 2024-08-03 14:51 | Outpatient (CLI) | payer MEDICARE, SELFPAY ==
[2021-01-21 09:20] VITALS: BMI 27.3
== END ==
PROVIDERS: PCP Physician Assistant; Visit Provider Urology
DX: N40.1 Benign prostatic hyperplasia with lower urinary tract symptoms (principal); N13.8 Other obstructive and reflux uropathy
CPT/HCPCS: 87086

== ENCOUNTER 2024-08-04 09:20 | Day surgery (SDC) | payer MEDICARE, SELFPAY ==
[2021-01-21 09:20] VITALS: BMI 27.3
[2024-08-04] VITALS (10 sets, daily range): BP systolic 133–170; BP diastolic 85–122; PULSE 55–117; RESP 10–16; TEMP 36.3–36.5; O2SAT 96–98; BMI 27.6
[2024-08-04] MEDS: LACTATED RINGERS 1,000 ML 42 ML IV (09:57)
--- NOTE | 2024-08-04 10:07 | PM.PREOP ---
Pre-operative Note COVID-19 COVID-19 status: Not tested Interval Note History & Physical reviewed/Exam performed by Physician: Yes Changes to H&P: No
[2024-08-04] MEDS: levoFLOXacin 500 MG/100 ML PIGGYBACK 100 MG IV (10:29)
--- NOTE | 2024-08-04 10:46 | SUR.OPER ---
Lithotomy on padded OR bed, head on pillow, arms secured on padded arm boards at <90 degrees abduction. Legs secured in padded yellow fins stirrups.
[2024-08-04] MEDS: iopamidoL 30 ML VIAL INJ (10:48)
--- NOTE | 2024-08-04 11:55 | P.OP_ITS ---
Operative Date/Time/Diagnoses Date of procedure: 08/04/24 Time of procedure: 11:00 Pre-op diagnosis: Bilateral nephrolithiasis Post-op diagnosis: same Procedure & Clinicians Procedure: Cystoscopy Left retrograde ureteropyelogram Left ureteroscopy, laser lithotripsy Left ureteral stent placement Right retrograde ureteropyelogram Right ureteral stent placement Intraoperative interpretation of flurosocopic images, total time < 1 hour Same procedure as scheduled: Yes Indications: 74 y/o M w/ an extensive h/o nephrolithiasis noted to have bilateral non- obstructing nephroliths, L>R. He was previously scheduled for a left ESWL with Dr. Nuñez, however, strongly desires to switch their care and undergo ureteroscopy with laser lithotripsy for stone management. Discussed that I do not perform bilateral ureteroscopy under the same anesthetic in order to avoid potential injury to both ureters. Discussed risks of the procedure to include pain, bleeding, infection, injury to urethra/bladder/ureter, inability to access the ureter requiring discussion with Interventional Radiology regarding a possible ureteral stent placement in an antegrade fashion vs a possible nephroureteral stent and/or percutaneous nephrostomy tube, urinary tract infection, inability to remove all of the stone in one setting, need for emergent open repair of bladder and/or ureter, need for multiple ureteroscopic interventions necessary to render the patient stone free. He would prefer a prophylactic clean out to avoid any future issues with stones, knowing full well that his chronic bilateral back pain is likely unrelated to his non-obstructing nephroliths. Therefore, he will undergo a cystoscopy with left ureteroscopy, laser lithotripsy and left ureteral stent placement. He will prophylactically have a right ureteral stent placed as well in order to facilitate a right ureteroscopy with laser lithotripsy and right ureteral stent exchange in the near future. Surgeon: Henok Velásquez Click Yes if Unassisted: Yes Anesthesia Type: General Operative Notes Findings: More than 10 small to moderate sized left nephroliths Closure Type: not applicable Specimen(s): other (left kidney stones) Estimated Blood Loss (mL): 2 Blood products transfused: none Procedure in detail: Procedures: 1) Cystoscopy 2) Left retrograde ureteropyelogram 3) Left ureteroscopy, laser lithotripsy 4) Left ureteral stent placement 5) Right retrograde ureteropyelogram 6) Right ureteral stent placement 7) Intraoperative interpretation of fluoroscopic images, < 1 hour, all images saved to PACS Indication: Patient was identified in the preoperative holding area and consent confirmed. Emelyn sun was then brought to the operating room where general anesthesia was induced.? He was placed in the low lithotomy position. He was then prepped and draped in the usual sterile fashion. A surgical timeout was conducted and all were in agreement. ?Access to the bladder was obtained via a 30 degree cystoscope.? Complete cystoscopy was then performed and no concerning bladder masses or lesions were appreciated.? Bilateral ureteral orifices were easily identified and noted to be orthotopic in nature.? The left ureteral orifice was then cannulated using a 5Fr ureteral catheter and a retrograde ureteropyelogram was performed which noted normal left ureteral and renal architecture. A 0.035 sensor tip ureteral guidewire was then advanced through the ureteral catheter and into the left renal pelvis. The ureteral catheter and cystoscope were then removed. A 12/14Fr ureteral access sheath was then advanced over the ureteral guidewire and into the proximal left ureter.? The ureteral guidewire and inner obturator were then removed.? The flexible ureteroscope was then advanced through the ureteral access sheath and into the left renal collecting system.? Complete pyeloscopy was then performed and more than 10 small to moderate sized left nephroliths were appreciated.? Laser lithotripsy was then performed utilizing the 245 micron laser fiber.? All stone fragments >1mm in size were removed via the stone basket and sent for chemical analysis.? A retrograde pyelogram was then performed which noted no filling defects concerning for residual stone.? The ureteral guidewire was then readvanced through the ureteroscope and into the left renal pelvis.? The ureter was then directly visualized upon removal of the ureteroscope and ureteral access sheath and noted to be stone free.? The cystoscope was then backloaded over the ureteral guidewire and advanced into the bladder.? A 7Fr multi-length JJ ureteral stent without strings was then advanced over the ureteral guidewire.? Upon removal of the guidewire, a good curl was noted within the left renal pelvis upon fluoroscopy and visually within the bladder.? The right ureteral orifice was then cannulated using a 5Fr ureteral catheter and a retrograde ureteropyelogram was performed which noted normal right ureteral and renal architecture. The ureteral guidewire was then advanced through the ureteral catheter and into the right renal collecting system and the ureteral catheter was removed. A 7Fr multi-length JJ ureteral stent without strings was then advanced over the ureteral guidewire. Upon removal of the guidewire, a good curl was noted within the right renal pelvis upon fluoroscopy and visually within the bladder. The bladder was then drained and the cystoscope was removed.? Anesthesia was reversed, he was extubated in the OR and transferred to the PACU in stable condition for recovery. Complications: none Post-operative Condition: stable Disposition: PACU Plan for aftercare: Discharge home from PACU. Will return to the OR for a cystoscopy, left ureteral stent removal, right ureteroscopy, laser lithotripsy and right ureteral stent exchange within the next 2-12 weeks.
--- NOTE | 2024-08-04 12:04 | DI.RAD.S_ITS ---
PROCEDURE: XR ABDOMEN MIN 2V INDICATIONS: BILATERAL STENT PLACEMENT TECHNIQUE: 2 views of the abdomen were acquired. COMPARISON: [facility], CR, XR ABDOMEN 1V, 09/01/2019, 14:26. [facility], CR, XR ABDOMEN 1V, 08/18/2019, 20:13. FINDINGS: Intraoperative images demonstrate bilateral nephroureteral stent placement with opacification of contrast in the renal collecting systems. Hernia mesh repair tacks overlie the pelvis. IMPRESSION: Intraoperative images of bilateral nephroureteral stent placement. Please see the operative report for further details. Dictated by: Telly Quezada M.D. on 08/04/2024 at 16:45 Approved by: Telly Quezada M.D. on 08/04/2024 at 16:45
[2024-08-04] MEDS: PHENAZOPYRIDINE 100 MG TABLET 200 MG PO (12:10)
[2024-08-04] MEDS: ACETAMINOPHEN 325 MG TABLET 975 MG PO (12:11)
[2024-08-04] MEDS: OXYCODONE IR 5 MG TABLET 10 MG PO (12:26)
[2024-08-14 21:08] LABS: Ca oxalate monohydr 100 % (.); Size 4x3 mm (.)
== END 2024-08-04 12:54 | disposition home or self-care (01) ==
PROVIDERS: PCP Physician Assistant; Referring Provider Urology; Visit Provider Urology
PROC: (CPT 52356; principal; 2024-08-04 11:00)
DX: N20.0 Calculus of kidney (principal)
CPT/HCPCS: 52356; 52332; 74019; 74420; 76000; 82365; C2617; J0330; J1100; J1956; J2405; J2704; J3010; Q9967

== ENCOUNTER 2024-08-25 06:24 | Day surgery (SDC) | payer MEDICARE, SELFPAY ==
[2021-01-21 09:20] VITALS: BMI 27.3
[2024-08-23 09:59] VITALS: BMI 27.8
[2024-08-25] VITALS (7 sets, daily range): BP systolic 114–151; BP diastolic 69–98; PULSE 55–92; RESP 12–94; TEMP 36.3–36.9; O2SAT 25–100; BMI 27.8
--- NOTE | 2024-08-25 | DI.RAD.S_ITS ---
PROCEDURE: XR ABDOMEN 1V INDICATIONS: RT STENT PLACEMENT TECHNIQUE: 2 intra-operative images acquired by the Urology service. COMPARISON: [facility], , XR ABDOMEN MIN 2V, 08/04/2024, 10:49. FINDINGS/IMPRESSION: There are 2 intraoperative images demonstrating right nephroureteral stent placement with contrast injection into the right renal collecting system. Please see urology report for further details. Approved by: Laura Humphreys M.D.,Ph.D. on 08/29/2024 at 12:15
[2024-08-25] MEDS: FAMOTIDINE 20 MG/2 ML VIAL IV (07:12)
[2024-08-25] MEDS: LACTATED RINGERS 1,000 ML 21 ML IV (07:12)
--- NOTE | 2024-08-25 07:31 | PM.PREOP ---
Pre-operative Note COVID-19 COVID-19 status: Not tested Interval Note History & Physical reviewed/Exam performed by Physician: Yes Changes to H&P: No
[2024-08-25] MEDS: cefTRIAXone 2,000 MG in SODIUM CHLORIDE 0.9% 100 ML 200 MG IV (07:50)
--- NOTE | 2024-08-25 08:10 | SUR.OPER ---
Lithotomy on padded OR bed, head on pillow, arms secured on padded arm boards at <90 degrees abduction. Legs secured in padded yellow fins stirrups.
[2024-08-25] MEDS: iopamidoL 30 ML VIAL 10 ML INTRAURETH (08:18)
--- NOTE | 2024-08-25 09:12 | SUR.OPER ---
LASER NOTE 200UM 1.34 TIME 1.17KJ 12.5W
--- NOTE | 2024-08-25 09:15 | P.OP_ITS ---
Operative Date/Time/Diagnoses Date of procedure: 08/25/24 Time of procedure: 08:00 Pre-op diagnosis: Bilateral nephrolithiasis Post-op diagnosis: same Procedure & Clinicians Procedure: Cystoscopy Left ureteral stent removal Right retrograde ureteropyelogram Right ureteroscopy, laser lithotripsy Right ureteral stent exchange Intraoperative interpretation of fluoroscopic images, total time < 1 hour Same procedure as scheduled: Yes Indications: 74 y/o M w/ an extensive h/o nephrolithiasis noted to have bilateral non- obstructing nephroliths, L>R. He was previously scheduled for a left ESWL with Dr. Nuñez, however, strongly desires to switch their care and undergo ureteroscopy with laser lithotripsy for stone management. Discussed that I do not perform bilateral ureteroscopy under the same anesthetic in order to avoid potential injury to both ureters. Therefore, he underwent a cystoscopy, left ureteroscopy with laser lithotripsy and bilateral ureteral stent placement. He returns today for a cystoscopy, left ureteral stent removal, right ureteroscopy with laser lithotripsy and right ureteral stent exchange. Surgeon: Henok Velásquez Click Yes if Unassisted: Yes Anesthesia Type: General Operative Notes Findings: Multiple small to medium size stones within right renal collecting system Closure Type: not applicable Specimen(s): other (right kidney stone) Applied: none Estimated Blood Loss (mL): 2 Blood products transfused: none Procedure in detail: Procedures: 1) Cystoscopy 2) Left ureteral stent removal 2) Right retrograde ureteropyelogram 3) Right ureteroscopy, laser lithotripsy 4) Right ureteral stent exchange 5) Intraoperative interpretation of fluoroscopic images, < 1 hour, all images saved to PACS Indication: Patient was identified in the preoperative holding area and consent confirmed. He was then brought to the operating room where general anesthesia was induced.? He was placed in the low lithotomy position. He was then prepped and draped in the usual sterile fashion. A surgical timeout was conducted and all were in agreement. ?Access to the bladder was obtained via a 30 degree cystoscope.? Complete cystoscopy was then performed and no concerning bladder masses or lesions were appreciated.? Bilateral ureteral orifices were easily identified and noted to be orthotopic in nature.? The previously placed left ureteral stent was easily visualized and removed. The previously placed right ureteral stent was easily visualized and externalized using the stent grasper.? A 0.035 sensor tip ureteral guidewire was advanced through the stent and into the right renal pelvis.? A 12/14Fr ureteral access sheath was then advanced over the ureteral guidewire and into the proximal right ureter.? The ureteral guidewire and inner obturator were then removed.? The flexible ureteroscope was then advanced through the ureteral access sheath and into the right renal collecting system.? Complete pyeloscopy was then performed and multiple small to medium sized stones were appreciated in virtually every calyx.? Laser lithotripsy was then performed utilizing the 200 micron laser fiber.? All stone fragments >1mm in size were removed via the stone basket and sent for chemical analysis.? A retrograde pyelogram was then performed which noted no filling defects concerning for residual stone.? The ureteral guidewire was then readvanced through the ureteroscope and into the right renal pelvis.? The ureter was then directly visualized upon removal of the ureteroscope and ureteral access sheath and noted to be stone free.? The cystoscope was then backloaded over the ureteral guidewire and advanced into the bladder.? A 7Fr multi-length JJ ureteral stent with strings was then advanced over the ureteral guidewire.? Upon removal of the guidewire, a good curl was noted within the right renal pelvis upon fluoroscopy and visually within the bladder.? The bladder was then drained and the cystoscope was removed.? Anesthesia was reversed, he was extubated in the OR and transferred to the PACU in stable condition for recovery. Complications: none Post-operative Condition: stable Disposition: PACU Plan for aftercare: Discharge home from PACU. Will return to Urology clinic in 3 months for a RBUS and stone analysis review.
[2024-08-25] MEDS: hydrOXYzine 50 MG/ML INJ 25 MG IM (09:27)
[2024-08-25] MEDS: PHENAZOPYRIDINE 100 MG TABLET 200 MG PO (09:27)
[2024-08-25] MEDS: OXYCODONE IR 5 MG TABLET 10 MG PO (09:34)
== END 2024-08-25 10:02 | disposition home or self-care (01) ==
PROVIDERS: PCP Physician Assistant; Referring Provider Urology; Visit Provider Urology
PROC: (CPT 52356; principal; 2024-08-25 07:45)
DX: N20.0 Calculus of kidney (principal)
CPT/HCPCS: 52356; 74018; 74420; 76000; 82365; C2617; J0696; J1100; J2405; J2704; J3010; J3410; J3490; Q9967

== ENCOUNTER → 2024-11-20 10:44 | Outpatient (CLI) | payer MEDICARE, SELFPAY ==
[2021-01-21 09:20] VITALS: BMI 27.3
--- NOTE | 2024-11-20 10:46 | DI.US.S_ITS ---
PROCEDURE: US RENAL COMPLETE INDICATIONS: calculus of ureter TECHNIQUE: Real-time scanning was performed of the kidneys and bladder, with image documentation. COMPARISON: [facility], , US RENAL COMPLETE, 09/09/2020, 12:12. FINDINGS: Kidneys: Kidneys are normal in size. Right kidney measures 12.0 cm long; left kidney measures 11.3 cm long. No cortical thinning. Renal cortical echotexture is normal. No hydronephrosis. Nonobstructing renal calculus measuring 0.5 centimeter on the left in the midpole. Simple renal cyst in the midpole of the left kidney measuring 1.4 centimeter. No suspicious solid mass lesions. Bladder: . Pre-void images demonstrate no intraluminal masses or stones. On pre-void images, bilateral ureteral jets are noted with color Doppler interrogation. (Of note, ureteral jets may not be detectable in up to 25% of cases due to insufficient differences in specific gravity between ureteral and bladder urine). Miscellaneous: No free pelvic fluid. IMPRESSION: Nonobstructing renal calculus on the left. Dictated by: Brock Bledsoe M.D. on 11/20/2024 at 12:34 Approved by: Brock Bledsoe M.D. on 11/20/2024 at 12:39
== END ==
LOC: US 10:45
PROVIDERS: PCP Physician Assistant; Referring Provider Urology; Visit Provider Urology
DX: N20.2 Calculus of kidney with calculus of ureter (principal); N28.1 Cyst of kidney, acquired
CPT/HCPCS: 76770